=== PATIENT | male | born 1940 | race Caucasian/White ===

== ENCOUNTER 2019-11-18 13:58 | Emergency (ER) | payer MEDICARE, OTHER ==
--- NOTE | 2019-11-18 15:03 | EDM.PDOC ---
ED HPI GENERAL MEDICAL PROBLEM - General Chief Complaint: General Stated Complaint: cant pee Time Seen by Provider: 11/18/19 14:15 Source of Information: Reports: Patient History Limitations: Reports: No Limitations - History of Present Illness INITIAL COMMENTS - FREE TEXT/NARRATIVE: Patient states not been able to urinate since about 3 this morning Patient states he has had multiple prostate issues including cancer and has had a prostatectomy in the past he currently sees Dr. Gaming in [place] [facility] as needed he has no other complaints at this time Improves with: Reports: None Worsens with: Reports: None Associated Symptoms: Reports: No Other Symptoms - Related Data Allergies Allergy/AdvReac Type Severity Reaction Status Date / Time Penicillins Allergy Other Verified 07/16/16 14:51 Home Meds: Home Meds Albuterol Sulfate [Proair Hfa] 2 puff PO Q4H PRN 07/11/16 [History] Aspirin [Halfprin] 81 mg PO DAILY 07/11/16 [History] Atenolol [Tenormin] 50 mg PO DAILY 07/11/16 [History] Citalopram Hydrobromide [Celexa] 40 mg PO DAILY 07/11/16 [History] Docusate Sodium [Colace] 200 mg PO BID 07/11/16 [History] Lisinopril/Hydrochlorothiazide [Zestoretic 20-12.5 mg Tablet] 1.5 tab PO DAILY 07/11/16 [History] Multivitamin [Multivitamins] 1 tab PO DAILY 07/11/16 [History] Naproxen Sodium [Aleve] 1 - 2 tab PO BID PRN 07/11/16 [History] Polyvinyl Alcohol [Artificial Tears] 1 drop EYEBOTH BID PRN 07/11/16 [History] Simvastatin [Zocor] 1 tab PO DAILY 07/11/16 [History] Tamsulosin [Flomax] 1 cap PO DAILY 07/11/16 [History] Acetaminophen/oxyCODONE [Percocet 325-5 MG] 1 each PO Q6H PRN 10/15/18 [History] Albuterol/Ipratropium [DuoNeb 3.0-0.5 MG/3 ML] 3 ml INH Q6H 10/15/18 [History] Budesonide [Pulmicort] 0.5 mg IH BID 10/15/18 [History] Dutasteride [Avodart] 0.5 mg PO DAILY 10/15/18 [History] Polyethylene Glycol 3350 [Miralax] 17 gm PO DAILY 10/15/18 [History] Acetaminophen/oxyCODONE [Percocet 325-5 MG] 1 tab PO Q6H PRN tablet 10/18/18 [ Rx] Albuterol/Ipratropium [DuoNeb 3.0-0.5 MG/3 ML] 3 ml NEB Q4HRRT neb 10/18/18 [Rx ] Cefuroxime [Ceftin] 250 mg PO BID #10 tablet 10/18/18 [Rx] Nicotine [Habitrol] 14 mg TRDERM DAILY@0800 #30 patch 10/18/18 [Rx] Potassium Chloride [Klor-Con 10] 20 meq PO WITHBREAKFAST #30 tab.er 10/18/18 [Rx ] predniSONE 40 mg PO WITHBREAKFAST #5 tablet 10/18/18 [Rx] Past Medical History HEENT History: Reports: Allergic Rhinitis, Cataract Cardiovascular History: Reports: CAD, High Cholesterol, Hypertension, PVD Respiratory History: Reports: COPD Gastrointestinal History: Reports: Other (See Below) Other Gastrointestinal History: hernia umbilical Genitourinary History: Reports: BPH, Other (See Below) Other Genitourinary History: turp- 10/06/18- sahni placed Musculoskeletal History: Reports: Osteoarthritis, Other (See Below) Other Musculoskeletal History: fatigue Neurological History: Reports: None Psychiatric History: Reports: Addiction, Anxiety, Depression Other Endocrine/Metabolic History: hyperglycemia Hematologic History: Reports: None Immunologic History: Reports: None Oncologic (Cancer) History: Reports: None Dermatologic History: Reports: None - Past Surgical History Head Surgeries/Procedures: Reports: None Cardiovascular Surgical History: Reports: Carotid Endarterectomy Male Surgical History: Reports: TURP-Transurethral Resection of Prostate Neurological Surgical History: Reports: None Oncologic Surgical History: Reports: None ED ROS GENERAL - Review of Systems Review Of Systems: See Below Constitutional: Denies: Fever, Chills, Malaise, Weakness, Fatigue, Diaphoresis, Decreased Appetite HEENT: Reports: No Symptoms Respiratory: Reports: No Symptoms Cardiovascular: Reports: No Symptoms Endocrine: Reports: No Symptoms GI/Abdominal: Reports: No Symptoms : Reports: Urinary Retention. Denies: Discharge, Dysuria, Flank Pain, Frequency, Hematuria, Incontinence, Pain, Urgency Musculoskeletal: Reports: No Symptoms Skin: Reports: No Symptoms Neurological: Reports: No Symptoms Psychiatric: Reports: No Symptoms Hematologic/Lymphatic: Reports: No Symptoms Immunologic: Reports: No Symptoms ED EXAM, RENAL/ - Physical Exam Exam: See Below General Appearance: Alert, WD/WN, No Apparent Distress Eye Exam: Bilateral Eye: EOMI, PERRL Throat/Mouth: Normal Inspection, Normal Lips, Normal Teeth, Normal Gums, Normal Oropharynx, Normal Voice, No Airway Compromise Neck: Normal Inspection, Full Range of Motion Respiratory/Chest: No Respiratory Distress, Lungs Clear, Normal Breath Sounds, No Accessory Muscle Use, Chest Non-Tender Cardiovascular: Normal Peripheral Pulses, Regular Rate, Rhythm, No Edema, No Gallop, No JVD, No Murmur, No Rub GI/Abdominal: Normal Bowel Sounds, Soft, Non-Tender, No Organomegaly, No Distention, Other (Mild tenderness to palpation over the lower pelvic area mild distention noted in the area no pain) Back Exam: Normal Inspection, Full Range of Motion. No: CVA Tenderness (L), CVA Tenderness (R) Extremities: Normal Inspection, Normal Range of Motion, Non-Tender, No Pedal Edema, Normal Capillary Refill Neurological: Alert, Oriented, CN II-XII Intact, Normal Cognition, Normal Gait, No Motor/Sensory Deficits Psychiatric: Normal Affect, Normal Mood Skin Exam: Warm, Dry, Intact, Normal Color, No Rash Course - Vital Signs Text/Narrative:: Several attempts was made by the nursing staff to pass a Sanhi cath from a 14- gauge down to a 10 with no LOC believe the patient has a urethral stricture or blockage of some sort Called [facility] Dr. ALICIA as well and except through the ER and will consult Dr. Gaming if needed Departure - Departure Time of Disposition: 15:05 Disposition: DC/Tfer to Other 70 Condition: Good Clinical Impression: Acute urinary retention - Discharge Information *PRESCRIPTION DRUG MONITORING PROGRAM REVIEWED*: No *COPY OF PRESCRIPTION DRUG MONITORING REPORT IN PATIENT STAN: No Forms: ED Department Discharge - Problem List & Annotations (1) Acute urinary retention SNOMED Code(s): 644205190 Code(s): R33.8 - OTHER RETENTION OF URINE Status: Acute Current Visit: Yes
[2019-11-18 15:11] VITALS: BP 151/91; PULSE 79
== END 2019-11-18 15:32 | disposition other institution (70) ==
LOC: VM.ED 13:58
DX: R33.9 Retention of urine, unspecified (principal); J44.9 Chronic obstructive pulmonary disease, unspecified; I25.10 Atherosclerotic heart disease of native coronary artery without angina pectoris; I10 Essential (primary) hypertension; E78.00 Pure hypercholesterolemia, unspecified; Z79.51 Long term (current) use of inhaled steroids; Z79.82 Long term (current) use of aspirin; Z79.899 Other long term (current) drug therapy; Z88.0 Allergy status to penicillin
CPT/HCPCS: 51702; 51798; 99284-25; 99284-GF

== ENCOUNTER 2020-06-16 13:13 | Emergency (ER) | payer MEDICARE, OTHER ==
--- NOTE | 2020-06-16 13:30 | EDM.PDOC ---
ED HPI GENERAL MEDICAL PROBLEM - General Chief Complaint: General Stated Complaint: ER Time Seen by Provider: 06/16/20 13:13 Source of Information: Reports: Patient History Limitations: Reports: No Limitations - History of Present Illness INITIAL COMMENTS - FREE TEXT/NARRATIVE: Patient comes into the emergency department by ambulance for elevated labs. Patient is a resident at the local [facility] and had his labs obtained for he had a decrease in urine output the last couple days. Labs were drawn on the patient yesterday while in the intermediate as well as given 1 L of normal saline. His labs were re-drawn this morning which did show an increase of his creatinine again. His creatinine 12 days ago was 2.4, yesterday 3.4 and today 7.0. Patient states he does not have a history of kidney issues however his chart states CKD stage 4. Patient states he feels nauseated and has increased abdominal discomfort. Patient was originally admitted to the intermediate due to acute kidney injury due to AKIN, NSAID, and dehydration. He denies any urinary burning hesitancy or frequency prior to the elevated creatinine within the last 2 weeks. He states he is been relatively healthy and has no other complaints or concerns prior to this. He states that in the last 24 to 48 hours is when the nausea and abdominal pain has increased as well as a decrease in urine output. Patient denies of any fever, chest pain, SOB, dizziness, or peripheral edema. Denies any active COVID-19 symptoms or recent exposure. Patient has had Covid- 19 testing completed on 06/04/20. Onset: Gradual Quality: Reports: Other Severity: Mild Improves with: Reports: None Worsens with: Reports: None Context: Reports: Activity Associated Symptoms: Reports: No Other Symptoms - Related Data Allergies Allergy/AdvReac Type Severity Reaction Status Date / Time Penicillins Allergy Other Verified 11/18/19 15:00 tizanidine [From Zanaflex] Allergy Cannot Verified 06/16/20 14:28 Remember Home Meds: Home Meds Albuterol Sulfate [Proair Hfa] 2 puff PO Q4H PRN 07/11/16 [History] Aspirin [Halfprin] 81 mg PO DAILY 07/11/16 [History] Citalopram Hydrobromide [Celexa] 40 mg PO DAILY 07/11/16 [History] Multivitamin [Multivitamins] 1 tab PO DAILY 07/11/16 [History] Polyvinyl Alcohol [Artificial Tears] 1 drop EYEBOTH QID PRN 07/11/16 [History] Simvastatin [Zocor] 1 tab PO DAILY 07/11/16 [History] Tamsulosin [Flomax] 1 cap PO DAILY 07/11/16 [History] atenoloL [Tenormin] 50 mg PO DAILY 07/11/16 [History] Albuterol/Ipratropium [DuoNeb 3.0-0.5 MG/3 ML] 3 ml INH Q6H 10/15/18 [History] Budesonide [Pulmicort] 0.5 mg IH BID 10/15/18 [History] Dutasteride [Avodart] 0.5 mg PO DAILY 10/15/18 [History] polyethylene glycoL 3350 [Miralax] 17 gm PO DAILY PRN 10/15/18 [History] Acetaminophen [Tylenol] 325 mg PO Q4H PRN 06/16/20 [History] Apixaban [Eliquis] 2.5 mg PO BID 06/16/20 [History] NIFEdipine [Nifedipine ER] 30 mg PO DAILY 06/16/20 [History] Omeprazole 20 mg PO DAILY 06/16/20 [History] Past Medical History HEENT History: Reports: Allergic Rhinitis, Cataract Cardiovascular History: Reports: CAD, High Cholesterol, Hypertension, PVD Respiratory History: Reports: COPD Gastrointestinal History: Reports: Other (See Below) Other Gastrointestinal History: hernia umbilical Genitourinary History: Reports: BPH, Other (See Below) Other Genitourinary History: turp- 10/06/18- sahni placed Musculoskeletal History: Reports: Osteoarthritis, Other (See Below) Other Musculoskeletal History: fatigue Neurological History: Reports: None Psychiatric History: Reports: Addiction, Anxiety, Depression Other Endocrine/Metabolic History: hyperglycemia Hematologic History: Reports: None Immunologic History: Reports: None Oncologic (Cancer) History: Reports: None Dermatologic History: Reports: None - Past Surgical History Head Surgeries/Procedures: Reports: None Cardiovascular Surgical History: Reports: Carotid Endarterectomy Male Surgical History: Reports: TURP-Transurethral Resection of Prostate Neurological Surgical History: Reports: None Oncologic Surgical History: Reports: None ED ROS GENERAL - Review of Systems Review Of Systems: Comprehensive ROS is negative, except as noted in HPI. Constitutional: Reports: No Symptoms HEENT: Reports: No Symptoms Respiratory: Reports: No Symptoms Cardiovascular: Reports: No Symptoms Endocrine: Reports: No Symptoms GI/Abdominal: Reports: No Symptoms Musculoskeletal: Reports: No Symptoms ED EXAM, GENERAL - Physical Exam Exam: See Below Exam Limited By: No Limitations General Appearance: Alert, WD/WN, No Apparent Distress Head: Atraumatic, Normocephalic Neck: Normal Inspection, Supple, Non-Tender, Full Range of Motion Respiratory/Chest: No Respiratory Distress, Lungs Clear, Normal Breath Sounds, No Accessory Muscle Use, Chest Non-Tender Cardiovascular: Normal Peripheral Pulses, Regular Rate, Rhythm, No Edema Back Exam: Normal Inspection, Full Range of Motion Extremities: Normal Inspection, Normal Range of Motion, Non-Tender, No Pedal Edema, Normal Capillary Refill Neurological: Alert, Oriented, CN II-XII Intact, Normal Gait Psychiatric: Normal Affect, Normal Mood Skin Exam: Warm, Dry, Intact, Normal Color Course - Vital Signs Last Recorded V/S: Last Vital Signs Temp 35.9 C L 06/16/20 13:26 Pulse 67 06/16/20 13:26 Resp 21 H 06/16/20 13:26 BP 131/59 L 06/16/20 13:26 Pulse Ox 96 06/16/20 13:26 - Orders/Labs/Meds Orders: Active Orders 24 hr Category Date Time Status CULTURE URINE [RM] Stat Lab 06/16/20 11:24 Received Labs: Laboratory Tests 06/16/20 06/16/20 06/16/20 Range/Units 11:24 11:50 13:35 WBC 10.2 H (4.0-10.0) x10^3/uL RBC 3.57 L (4.5-6.0) x10^6/uL Hgb 10.5 L D (14.0-18.0) g/dL Hct 31.1 L (40.0-52.0) % MCV 87.1 D (78.0-93.0) fL MCH 29.4 (26.0-32.0) pg MCHC 33.8 (32.0-36.0) g/dL RDW Coeff of Anthony 12.9 (10.0-15.0) % Plt Count 237 (130-400) x10^3/uL Neut % (Auto) 84.3 H (50.0-80.0) % Lymph % (Auto) 5.1 L (25.0-50.0) % Barren % (Auto) 10.3 (2.0-11.0) % Eos % (Auto) 0.1 (0.0-4.0) % Baso % (Auto) 0.2 (0.2-1.2) % PT (9.5-12.3) SEC INR (2.0-3.5) Sodium TNP Potassium TNP Chloride TNP Carbon Dioxide TNP Anion Gap TNP BUN TNP Creatinine TNP Est Cr Clr Drug Dosing TNP Estimated GFR (MDRD) TNP Glucose TNP Calcium TNP Corrected Calcium TNP Total Bilirubin 0.5 (0.2-1.0) mg/dL AST 46 H (15-37) U/L ALT 57 (16-63) U/L Alkaline Phosphatase 98 (46-116) U/L Troponin I < 0.017 (<=0.056) ng/mL Total Protein 7.1 (6.4-8.2) g/dL Albumin 2.3 L (3.4-5.0) g/dL Globulin 4.8 Albumin/Globulin Ratio 0.48 Urine Color Light yellow (YELLOW) Urine Appearance Slightly cloudy H (CLEAR) Urine pH 6.0 (5.0-8.0) Ur Specific [place] 1.015 Urine Protein 30 H (NEGATIVE) mg/dL Urine Glucose (UA) Negative (NEGATIVE) mg/dL Urine Ketones Negative (NEGATIVE) mg/dL Urine Occult Blood Moderate H (NEGATIVE) Urine Nitrite Negative (NEGATIVE) Urine Bilirubin Negative (NEGATIVE) Urine Urobilinogen 0.2 (0.2) EU/dL Ur Leukocyte Esterase Large H (NEGATIVE) Urine RBC 5-10 H (NOT SEEN) /HPF Urine WBC 30-40 H (NOT SEEN) /HPF Ur Squamous Epith Cells Not seen (NEGATIVE) /HPF Urine Bacteria Few H (NEGATIVE) /HPF Urine Mucus Not seen (NEGATIVE) /LPF 06/16/20 Range/Units 13:35 WBC (4.0-10.0) x10^3/uL RBC (4.5-6.0) x10^6/uL Hgb (14.0-18.0) g/dL Hct (40.0-52.0) % MCV (78.0-93.0) fL MCH (26.0-32.0) pg MCHC (32.0-36.0) g/dL RDW Coeff of Anthony (10.0-15.0) % Plt Count (130-400) x10^3/uL Neut % (Auto) (50.0-80.0) % Lymph % (Auto) (25.0-50.0) % Barren % (Auto) (2.0-11.0) % Eos % (Auto) (0.0-4.0) % Baso % (Auto) (0.2-1.2) % PT 15.5 H (9.5-12.3) SEC INR 1.5 L (2.0-3.5) Sodium Potassium Chloride Carbon Dioxide Anion Gap BUN Creatinine Est Cr Clr Drug Dosing Estimated GFR (MDRD) Glucose Calcium Corrected Calcium Total Bilirubin (0.2-1.0) mg/dL AST (15-37) U/L ALT (16-63) U/L Alkaline Phosphatase (46-116) U/L Troponin I (<=0.056) ng/mL Total Protein (6.4-8.2) g/dL Albumin (3.4-5.0) g/dL Globulin Albumin/Globulin Ratio Urine Color (YELLOW) Urine Appearance (CLEAR) Urine pH (5.0-8.0) Ur Specific [place] Urine Protein (NEGATIVE) mg/dL Urine Glucose (UA) (NEGATIVE) mg/dL Urine Ketones (NEGATIVE) mg/dL Urine Occult Blood (NEGATIVE) Urine Nitrite (NEGATIVE) Urine Bilirubin (NEGATIVE) Urine Urobilinogen (0.2) EU/dL Ur Leukocyte Esterase (NEGATIVE) Urine RBC (NOT SEEN) /HPF Urine WBC (NOT SEEN) /HPF Ur Squamous Epith Cells (NEGATIVE) /HPF Urine Bacteria (NEGATIVE) /HPF Urine Mucus (NEGATIVE) /LPF Meds: Medications Discontinued Medications Generic Name Dose Route Start Last Admin Trade Name Freq PRN Reason Stop Dose Admin Ceftriaxone Sodium 1 gm 06/16/20 14:27 06/16/20 14:38 Rocephin IVPUSH 06/16/20 14:28 1 gm ONETIME ONE Administration Ondansetron HCl 4 mg 06/16/20 13:25 06/16/20 13:34 Zofran IVPUSH 06/16/20 13:26 4 mg ONETIME ONE Administration Departure - Departure Time of Disposition: 15:15 Disposition: DC/Tfer to Psych Hosp/Unit 65 Condition: Fair Clinical Impression: UTI, Urinary tract infectious disease, Acute urinary retention Acute kidney failure Qualifiers: Acute renal failure type: unspecified Qualified Code(s): N17.9 - Acute kidney failure, unspecified - Discharge Information *PRESCRIPTION DRUG MONITORING PROGRAM REVIEWED*: Not Applicable *COPY OF PRESCRIPTION DRUG MONITORING REPORT IN PATIENT STAN: Not Applicable Referrals: Alice Torrez MD [Primary Care Provider] - Forms: ED Department Discharge, Interfacility Transfer [facility] Sepsis Event Note (ED) - Focused Exam Vital Signs: Vital Signs Temp Pulse Resp BP Pulse Ox 06/16/20 13:26 35.9 C L 67 21 H 131/59 L 96 - My Orders Last 24 Hours: My Active Orders 06/16/20 11:24 CULTURE URINE [RM] Stat - Assessment/Plan Last 24 Hours: My Active Orders 06/16/20 11:24 CULTURE URINE [RM] Stat Assessment:: 1. Acute on chronic kidney failure 2. nausea Plan: 1. Labs completed in the ER. Results reviewed with the patient 2. CT scan completed in the ER. Results reviewed with the patient 3. IV initiated in the emergency department 4. IV fluids provided. 5. Pain medication given for severe pain and discomfort-pt denied wanting any medications at the present time. 6. Zofran given in the ER to help with nausea 7. Rocephin 1gm IV given in ER. 8. Consultation completed with-Dr. Peterson who has accepted care and acute transfer of patient for further evaluation and management. Pt will be transferred via ambulance. 9. Patient and nursing staff was updated regarding the plan of care 10. Patient and family are agreeable to the above plan of care 11. All questions and concerns were addressed with the patient and family prior to discharge
[2020-06-16] MEDS: Ondansetron 4 MG/2 ML SDV IVPUSH ONE (13:34)
[2020-06-16] MEDS: cefTRIAXone 1 GM Vial IVPUSH ONE (14:38)
--- NOTE | 2020-06-16 14:39 | CT ---
[id number] CT/CT Abdomen Pelvis WO IV EXAM: ABDOMEN AND PELVIS CT WITHOUT CONTRAST INDICATION: Abdomen pain and kidney failure. COMPARISON: August 18, 2018. DISCUSSION: Interval prostate resection. A Simmons catheter is present with the tip in the urinary bladder, but the balloon appearing to be positioned within the prostatic urethra. There is a thick-walled appearance of the bladder which could be from chronic outlet obstruction, cystitis or other underlying pathology. Correlation with urinalysis is suggested. There is mild perinephric stranding, but no current hydronephrosis or urinary calculi. Mild splenomegaly. A few scattered subcentimeter hepatic hypodensities are too small to further characterize, but are stable relative to prior studies. Atherosclerotic plaque scattered throughout the aorta and its major branches. Diverticulosis of the colon without evidence of diverticulitis. Small fat-containing umbilical hernia. Just above this there is a small hernia containing an unobstructed loop of small bowel. A moderate to advanced L3 burst-type compression fracture is similar in morphology to a January 09, 2020 MRI with persistent 8 mm displacement of the posterior aspect of vertebral body into the central canal with resulting central stenosis. Scattered degenerative changes. Grade 1 degenerative L4-L5 spondylolisthesis. Unenhanced images of the pancreas and adrenal glands are unremarkable. No adenopathy or free air. No significant free fluid. IMPRESSION: 1. Malpositioned Simmons catheter with the tip entering the urinary bladder, but the balloon positioned within the penile urethra. 2. There is mild bilateral perinephric stranding and a thick-walled appearance of the urinary bladder, but no hydronephrosis or significant bladder distention. Correlation with urinalysis is suggested to further exclude evidence of urinary infection. 3. Moderate to severe burst-type compression fracture of L3 with a retropulsed fragment narrowing the central canal. These findings have not definitely changed relative to January 09, 2020 MRI. Fabio Cui MD 06/16/20 [id number] Thank you for allowing us to participate in the care of your patient.
[2020-06-16 15:38] VITALS: BP 109/40; PULSE 72
== END 2020-06-16 16:00 | disposition short-term general hospital (02) ==
LOC: VM.ED 13:13
DX: N39.0 Urinary tract infection, site not specified (principal); I12.9 Hypertensive chronic kidney disease with stage 1 through stage 4 chronic kidney disease, or unspecified chronic kidney disease; N18.9 Chronic kidney disease, unspecified; N17.9 Acute kidney failure, unspecified; R11.0 Nausea; I10 Essential (primary) hypertension; E78.00 Pure hypercholesterolemia, unspecified; I25.10 Atherosclerotic heart disease of native coronary artery without angina pectoris; J44.9 Chronic obstructive pulmonary disease, unspecified; N40.0 Benign prostatic hyperplasia without lower urinary tract symptoms; M19.90 Unspecified osteoarthritis, unspecified site; F41.9 Anxiety disorder, unspecified; F32.9 Major depressive disorder, single episode, unspecified; Z88.0 Allergy status to penicillin; Z88.8 Allergy status to other drugs, medicaments and biological substances; Z79.82 Long term (current) use of aspirin; Z79.899 Other long term (current) drug therapy; Z79.01 Long term (current) use of anticoagulants
CPT/HCPCS: 36415; 74176; 80053; 81001; 84484; 85025; 85610; 87086; 87088; 87186; 96374; 96375; 99285; J0696; J2405; 81003; 99284

== ENCOUNTER 2020-10-03 19:44 | Inpatient (IN) | payer MEDICARE, OTHER ==
[2020-10-03] MEDS ORDERED: Lactated Ringers 1,000 ML IV ONE (20:06)
[2020-10-03] MEDS ORDERED: Azithromycin 500 MG in Sodium Chloride 0.9% 250 ML IV ONE (20:06)
[2020-10-03] MEDS ORDERED: cefTRIAXone 1 GM Vial IVPUSH ONE (20:06)
--- NOTE | 2020-10-03 20:10 | EDM.PDOC ---
ED HPI GENERAL MEDICAL PROBLEM - General Stated Complaint: hypoxia tachypnea Time Seen by Provider: 10/03/20 19:57 Source of Information: Reports: Patient History Limitations: Reports: No Limitations - History of Present Illness INITIAL COMMENTS - FREE TEXT/NARRATIVE: Patient comes to the emergency department today by ambulance from the local alf. The ambulance was summoned because the nursing staff noticed that he just was not himself. 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 He was noted to be tachypneic. Upon EMS arrival his oxygen saturation was in 87% on 2 L which she is chronically on 2 L of oxygen. He required 5 L of oxygen to get his sats up to over 92%. He was given a nebulizer treatment with improvement of his tachypnea. Upon arrival the patient really does not have any complaints. He does not complain of any shortness of breath or chest pain. No fever no chills. No nausea no vomiting. No weakness dizziness lightheadedness. He does complain of some chronic back pain that he has always had. He denies any hematuria dysuria or urinary frequency. No black or tarry stools. He relates that he has been eating and drinking appropriately. He was Covid positive a couple of weeks ago and is out of his quarantine time. - Related Data Allergies Allergy/AdvReac Type Severity Reaction Status Date / Time Penicillins Allergy Other Verified 10/03/20 20:51 tizanidine [From Zanaflex] Allergy Cannot Verified 10/03/20 20:51 Remember Home Meds: Home Meds Albuterol Sulfate [Proair Hfa] 2 puff PO Q4H PRN 07/11/16 [History] Aspirin [Halfprin] 81 mg PO DAILY 07/11/16 [History] Citalopram Hydrobromide [Celexa] 40 mg PO DAILY 07/11/16 [History] Multivitamin [Multivitamins] 1 tab PO DAILY 07/11/16 [History] Polyvinyl Alcohol [Artificial Tears] 1 drop EYEBOTH QID PRN 07/11/16 [History] Simvastatin [Zocor] 10 mg PO DAILY 07/11/16 [History] atenoloL [Tenormin] 50 mg PO DAILY 07/11/16 [History] Albuterol/Ipratropium [DuoNeb 3.0-0.5 MG/3 ML] 3 ml INH Q6H 10/15/18 [History] Budesonide [Pulmicort] 0.5 mg IH BID 10/15/18 [History] Dutasteride [Avodart] 0.5 mg PO DAILY 10/15/18 [History] polyethylene glycoL 3350 [Miralax] 17 gm PO DAILY PRN 10/15/18 [History] Acetaminophen [Tylenol] 325 mg PO Q4H PRN 06/16/20 [History] Apixaban [Eliquis] 2.5 mg PO BID 06/16/20 [History] NIFEdipine [Nifedipine ER] 30 mg PO DAILY 06/16/20 [History] Calcium Carbonate [Tums] 2 tab PO QID PRN 10/03/20 [History] Non-Formulary Medication [NF Drug] 1,000 intnl unit PO DAILY 10/03/20 [History] Sodium Bicarbonate 650 mg PO BID PRN 10/03/20 [History] guaiFENesin [Mucinex] 600 mg PO Q12HR PRN 10/03/20 [History] Past Medical History HEENT History: Reports: Allergic Rhinitis, Cataract Cardiovascular History: Reports: CAD, High Cholesterol, Hypertension, PVD Respiratory History: Reports: COPD Gastrointestinal History: Reports: Other (See Below) Other Gastrointestinal History: hernia umbilical Genitourinary History: Reports: BPH, Other (See Below) Other Genitourinary History: turp- 10/06/18- sahni placed Musculoskeletal History: Reports: Osteoarthritis, Other (See Below) Other Musculoskeletal History: fatigue Neurological History: Reports: None Psychiatric History: Reports: Addiction, Anxiety, Depression Other Endocrine/Metabolic History: hyperglycemia Hematologic History: Reports: None Immunologic History: Reports: None Oncologic (Cancer) History: Reports: None Dermatologic History: Reports: None - Past Surgical History Head Surgeries/Procedures: Reports: None Cardiovascular Surgical History: Reports: Carotid Endarterectomy Male Surgical History: Reports: TURP-Transurethral Resection of Prostate Neurological Surgical History: Reports: None Oncologic Surgical History: Reports: None ED ROS GENERAL - Review of Systems Review Of Systems: Comprehensive ROS is negative, except as noted in HPI. ED EXAM, GENERAL - Physical Exam Exam: See Below Free Text/Narrative:: He is mildly tachypneic especially with any physical exertion. There is no labored breathing. He is only able to speak in 3-5 word sentences. Exam Limited By: No Limitations General Appearance: Alert, WD/WN, No Apparent Distress Eye Exam: Bilateral Eye: EOMI Ears: Normal External Exam Nose: Normal Inspection Throat/Mouth: No Airway Compromise. No: Normal Inspection (His oral mucosa is quite dry.), Normal Lips (His lips are dried and cracked.) Head: Atraumatic, Normocephalic Neck: Normal Inspection, Supple, Non-Tender Respiratory/Chest: No Respiratory Distress, Chest Non-Tender, Decreased Breath Sounds (Bilaterally.), Crackles (Left lower lobe), Wheezing (Faint expiratory wheezing bilaterally.) Cardiovascular: Normal Peripheral Pulses, Regular Rate, Rhythm, No Edema, No Murmur GI/Abdominal: Normal Bowel Sounds, Soft, Non-Tender (Male) Exam: Deferred Rectal (Males) Exam: Deferred Back Exam: Normal Inspection, Full Range of Motion Extremities: Normal Inspection, Normal Range of Motion, Non-Tender, Normal Capillary Refill Neurological: Alert, Oriented, Normal Cognition, No Motor/Sensory Deficits Skin Exam: Warm, Dry, Intact, Normal Color #1 Interpretation EKG Date: 10/03/20 Time: 20:00 Rhythm: NSR Rate (Beats/Min): 97 [place]: Normal P-Wave: Present QRS: Normal ST-T: Normal QT: Normal Comparison: No Change Course - Vital Signs Last Recorded V/S: Last Vital Signs Temp 98.6 F 10/03/20 22:08 Pulse 87 10/03/20 22:08 Resp 22 H 10/03/20 22:08 BP 120/54 L 10/03/20 22:08 Pulse Ox 94 L 10/03/20 22:08 - Orders/Labs/Meds Orders: Active Orders 24 hr Category Date Time Status EKG Documentation Completion [RC] STAT Care 10/03/20 19:55 Active CULTURE BLOOD [BC] Stat Lab 10/03/20 20:13 Received CULTURE BLOOD [BC] Stat Lab 10/03/20 20:18 Received CULTURE URINE [RM] Stat Lab 10/03/20 20:45 Received PROCALCITONIN [REF] Stat Lab 10/03/20 20:13 Received Blood Culture x2 Reflex Set [OM.PC] Stat Oth 10/03/20 20:04 Ordered Medication Orders Acetaminophen (Tylenol) 650 mg PO Q4H PRN PRN Reason: Pain Albuterol/Ipratropium (Duoneb 3.0-0.5 Mg/3 Ml) 3 ml INH Q6HRRT [facility] Last Admin: 10/03/20 22:54 Dose: 3 ml Documented by: ERMA Apixaban (Eliquis) 2.5 mg PO BID [facility] Artificial Tears (Genteal Mild To Moderate Ophth Soln) 0 ml EYEBOTH QID PRN PRN Reason: Dryness Aspirin (Halfprin) 81 mg PO DAILY JAQUELINE Atenolol (Tenormin) 50 mg PO DAILY [facility] Azithromycin (Zithromax) 500 mg PO Q24H [facility] Stop: 10/09/20 22:01 Budesonide (Pulmicort) 0.5 mg INH BIDRT [facility] Ceftriaxone Sodium (Rocephin) 1 gm IVPUSH Q24H [facility] Citalopram Hydrobromide (Celexa) 40 mg PO DAILY [facility] Finasteride (Proscar) 5 mg PO DAILY [facility] Guaifenesin (Mucinex) 600 mg PO Q12HR PRN PRN Reason: for excess mucus secretions Last Admin: 10/03/20 22:54 Dose: 600 mg Documented by: ERMA Lactated Ringer's (Ringers, Lactated) 1,000 mls @ 50 mls/hr IV ASDIRECTED [facility] Last Admin: 10/03/20 22:47 Dose: 50 mls/hr Documented by: ERMA Nifedipine (Procardia Xl) 30 mg PO DAILY [facility] Non-Formulary Medication (Calcium Carbonate [Tums]) 2 tab PO QID PRN PRN Reason: GI Distress Polyethylene Glycol (Miralax) 17 gm PO DAILY PRN PRN Reason: Constipation Prednisone (Prednisone) 40 mg PO WITHBREAKFAST [facility] Simvastatin (Zocor) 10 mg PO DAILY [facility] Sodium Bicarbonate (Sodium Bicarbonate) 650 mg PO BID [facility] Labs: Laboratory Tests 10/03/20 10/03/20 10/03/20 Range/Units 20:13 20:13 20:13 WBC 8.3 (4.0-10.0) x10^3/uL RBC 2.95 L (4.5-6.0) x10^6/uL Hgb 8.7 L D (14.0-18.0) g/dL Hct 27.8 L (40.0-52.0) % MCV 94.2 H D (78.0-93.0) fL MCH 29.5 (26.0-32.0) pg MCHC 31.3 L (32.0-36.0) g/dL RDW Coeff of Anthony 12.8 (10.0-15.0) % Plt Count 328 D (130-400) x10^3/uL Neut % (Auto) 77.8 (50.0-80.0) % Lymph % (Auto) 10.9 L (25.0-50.0) % Christian % (Auto) 9.7 (2.0-11.0) % Eos % (Auto) 1.4 (0.0-4.0) % Baso % (Auto) 0.2 (0.2-1.2) % POC VBG pH (7.32-7.43) pH POC VBG pCO2 (41-51) mmHg POC VBG pO2 mmHg POC VBG HCO3 (22-29) mmol/L POC Venous O2 Sat % VBG Base Excess (-(2)-3) mmol/L POC FiO2 Sodium 136 (136-145) mmol/L Potassium 4.9 (3.5-5.1) mmol/L Chloride 99 (98-107) mmol/L Carbon Dioxide 28 (21-32) mmol/L POC Venous Total CO2 Anion Gap 13.9 (10-20) mmol/L BUN 25 H D (7-18) mg/dL Creatinine 2.5 H D (0.70-1.30) mg/dL Est Cr Clr Drug Dosing TNP Estimated GFR (MDRD) 25 Glucose 116 H (74-106) mg/dL Lactic Acid 1.4 (0.4-2.0) mmol/L Calcium 8.9 (8.5-10.1) mg/dL Corrected Calcium 9.94 (8.5-10.1) mg/dL Total Bilirubin 0.4 (0.2-1.0) mg/dL AST 20 (15-37) U/L ALT 31 (16-63) U/L Alkaline Phosphatase 109 (46-116) U/L Troponin I < 0.017 (<=0.056) ng/mL C-Reactive Protein 9.4 H (<=0.9) mg/dL NT-Pro-B Natriuret Pep 1256 H (<=450) pg/mL Total Protein 7.6 (6.4-8.2) g/dL Albumin 2.7 L (3.4-5.0) g/dL Globulin 4.9 Albumin/Globulin Ratio 0.55 Urine Color (YELLOW) Urine Appearance (CLEAR) Urine pH (5.0-8.0) Ur Specific [place] Urine Protein (NEGATIVE) mg/dL Urine Glucose (UA) (NEGATIVE) mg/dL Urine Ketones (NEGATIVE) mg/dL Urine Occult Blood (NEGATIVE) Urine Nitrite (NEGATIVE) Urine Bilirubin (NEGATIVE) Urine Urobilinogen (0.2) EU/dL Ur Leukocyte Esterase (NEGATIVE) Urine RBC (NOT SEEN) /HPF Urine WBC (NOT SEEN) /HPF Ur Squamous Epith Cells (NEGATIVE) /HPF Amorphous Sediment Urine Bacteria (NEGATIVE) /HPF Urine Mucus (NEGATIVE) /LPF 10/03/20 10/03/20 Range/Units 20:13 20:45 WBC (4.0-10.0) x10^3/uL RBC (4.5-6.0) x10^6/uL Hgb (14.0-18.0) g/dL Hct (40.0-52.0) % MCV (78.0-93.0) fL MCH (26.0-32.0) pg MCHC (32.0-36.0) g/dL RDW Coeff of Anthony (10.0-15.0) % Plt Count (130-400) x10^3/uL Neut % (Auto) (50.0-80.0) % Lymph % (Auto) (25.0-50.0) % Christian % (Auto) (2.0-11.0) % Eos % (Auto) (0.0-4.0) % Baso % (Auto) (0.2-1.2) % POC VBG pH 7.32 (7.32-7.43) pH POC VBG pCO2 51 (41-51) mmHg POC VBG pO2 51 mmHg POC VBG HCO3 26 (22-29) mmol/L POC Venous O2 Sat 83 % VBG Base Excess 0 (-(2)-3) mmol/L POC FiO2 0.28 Sodium (136-145) mmol/L Potassium (3.5-5.1) mmol/L Chloride (98-107) mmol/L Carbon Dioxide (21-32) mmol/L POC Venous Total CO2 TNP Anion Gap (10-20) mmol/L BUN (7-18) mg/dL Creatinine (0.70-1.30) mg/dL Est Cr Clr Drug Dosing Estimated GFR (MDRD) Glucose (74-106) mg/dL Lactic Acid (0.4-2.0) mmol/L Calcium (8.5-10.1) mg/dL Corrected Calcium (8.5-10.1) mg/dL Total Bilirubin (0.2-1.0) mg/dL AST (15-37) U/L ALT (16-63) U/L Alkaline Phosphatase (46-116) U/L Troponin I (<=0.056) ng/mL C-Reactive Protein (<=0.9) mg/dL NT-Pro-B Natriuret Pep (<=450) pg/mL Total Protein (6.4-8.2) g/dL Albumin (3.4-5.0) g/dL Globulin Albumin/Globulin Ratio Urine Color Yellow (YELLOW) Urine Appearance Cloudy H (CLEAR) Urine pH 7.0 (5.0-8.0) Ur Specific [place] 1.015 Urine Protein 30 H (NEGATIVE) mg/dL Urine Glucose (UA) Negative (NEGATIVE) mg/dL Urine Ketones Negative (NEGATIVE) mg/dL Urine Occult Blood Trace-intact H (NEGATIVE) Urine Nitrite Positive H (NEGATIVE) Urine Bilirubin Negative (NEGATIVE) Urine Urobilinogen 0.2 (0.2) EU/dL Ur Leukocyte Esterase Moderate H (NEGATIVE) Urine RBC 5-10 H (NOT SEEN) /HPF Urine WBC 20-30 H (NOT SEEN) /HPF Ur Squamous Epith Cells Not seen (NEGATIVE) /HPF Amorphous Sediment Moderate Urine Bacteria Many H (NEGATIVE) /HPF Urine Mucus Few H (NEGATIVE) /LPF Meds: Medications Generic Name Dose Route Start Last Admin Trade Name Freq PRN Reason Stop Dose Admin Acetaminophen 650 mg 10/03/20 22:37 Tylenol PO Q4H PRN Pain Albuterol/Ipratropium 3 ml 10/03/20 22:15 10/03/20 22:54 Duoneb 3.0-0.5 Mg/3 Ml INH 3 ml Q6HRRT JAQUELINE Administration Apixaban 2.5 mg 10/04/20 08:00 Eliquis PO BID [facility] Artificial Tears 0 ml 10/03/20 22:30 Genteal Mild To Moderate Ophth Soln EYEBOTH QID PRN Dryness Aspirin 81 mg 10/04/20 08:00 Halfprin PO DAILY [facility] Atenolol 50 mg 10/04/20 08:00 Tenormin PO DAILY [facility] Azithromycin 500 mg 10/04/20 22:00 Zithromax PO 10/09/20 22:01 Q24H [facility] Budesonide 0.5 mg 10/04/20 07:00 Pulmicort INH BIDRT [facility] Ceftriaxone Sodium 1 gm 10/04/20 20:00 Rocephin IVPUSH Q24H [facility] Citalopram Hydrobromide 40 mg 10/04/20 08:00 Celexa PO DAILY [facility] Finasteride 5 mg 10/04/20 08:00 Proscar PO DAILY [facility] Guaifenesin 600 mg 10/03/20 22:30 10/03/20 22:54 Mucinex PO 600 mg Q12HR PRN Administration for excess mucus secretions Lactated Ringer's 1,000 mls @ 50 mls/hr 10/03/20 22:15 10/03/20 22:47 Ringers, Lactated IV 50 mls/hr ASDIRECTED [facility] Administration Nifedipine 30 mg 10/04/20 08:00 Procardia Xl PO DAILY [facility] Non-Formulary Medication 2 tab 10/03/20 22:36 Calcium Carbonate [Tums] PO QID PRN GI Distress Polyethylene Glycol 17 gm 10/03/20 22:30 Miralax PO DAILY PRN Constipation Prednisone 40 mg 10/04/20 08:00 Prednisone PO WITHBREAKFAST [facility] Simvastatin 10 mg 10/04/20 08:00 Zocor PO DAILY [facility] Sodium Bicarbonate 650 mg 10/04/20 08:00 Sodium Bicarbonate PO BID [facility] Discontinued Medications Generic Name Dose Route Start Last Admin Trade Name Freq PRN Reason Stop Dose Admin Acetaminophen 1,000 mg 10/03/20 21:00 10/03/20 21:15 Tylenol Extra Strength PO 10/03/20 21:01 1,000 mg ONETIME ONE Administration Acetaminophen 325 mg 10/03/20 22:12 Tylenol PO Q4H PRN Pain Ceftriaxone Sodium 1 gm 10/03/20 20:06 10/03/20 20:16 Rocephin IVPUSH 10/03/20 20:07 1 gm STAT ONE Administration Lactated Ringer's 1,000 mls @ 125 mls/hr 10/03/20 20:06 10/03/20 20:18 Ringers, Lactated IV 10/04/20 04:05 125 mls/hr ONETIME ONE Administration Azithromycin 500 mg/ Sodium 250 mls @ 250 mls/hr 10/03/20 20:06 10/03/20 20:34 Chloride IV 10/03/20 21:05 250 mls/hr STAT ONE Administration Methylprednisolone Sodium Succinate 125 mg 10/03/20 20:20 10/03/20 20:28 Solu-Medrol IVPUSH 10/03/20 20:21 125 mg ONETIME ONE Administration - Radiology Interpretation Free Text/Narrative:: Chest x-ray per radiology shows faint bilateral interstitial pattern. - Re-Assessments/Exams Free Text/Narrative Re-Assessment/Exam: 10/03/20 20:22 IV established by the ambulance. Labs are drawn including blood cultures x2. Chest x-ray initially reviewed extemporaneously by myself concerns for a left lower lobe pneumonia. Ceftriaxone 1 g IV push, azithromycin 500 mg IV piggyback. Solu-Medrol 125 mg IV push. Lactated Ringer's 250 mill bolus 125 an hour. CBC with a WBC of 8.3 hemoglobin 8.7 which is chronic for him and a platelet of 328. His venous blood gases are unremarkable without any hypercapnia and normal pH. Sodium and potassium are normal. BUN 25 creatinine 2.5 at about baseline for this patient. Lactic acid is negative at 1.4. Troponin less than 0.017. C-reactive protein 9.4. proBNP 1256 although he does not have any sequelae on his chest x-ray of fluid overload. Urinalysis is positive for nitrites as well as moderate leukocyte esterase 20-30 WBCs. Urine culture pending. Person gets quite winded and tachypneic with any physical exertion concerning for a COPD exacerbation as well as urinary tract infection and pneumonia. I called and spoke with Dr. Sewell who is offset second press operator for the hospital. HPI ER COURSE findings and concerns were relayed to her verbally over the phone. She accepted the patient as an inpatient here for further care management and came to see the patient in the hospital this evening as well. Departure - Departure Time of Disposition: 21:06 Disposition: Admitted As Inpatient 64 Clinical Impression: Acute exacerbation of chronic obstructive pulmonary disease (COPD), UTI, Ur inary tract infectious disease Pneumonia Qualifiers: Pneumonia type: due to unspecified organism Laterality: bilateral Lung location: unspecified part of lung Qualified Code(s): J18.9 - Pneumonia, unspecified organism CRF (chronic renal failure) Qualifiers: Chronic kidney disease stage: stage 4 (severe) Qualified Code(s): N18.4 - Chronic kidney disease, stage 4 (severe) Anemia Qualifiers: Anemia type: unspecified type Qualified Code(s): D64.9 - Anemia, unspecified - Discharge Information Sepsis Event Note (ED) - Focused Exam Vital Signs: Vital Signs Temp Temp Pulse Resp BP Pulse Ox Pulse Ox 10/03/20 20:50 102.1 F H 94 28 H 143/65 H 97 10/03/20 19:50 97 10/03/20 19:45 98.6 F 99.1 F 98 30 H 180/78 H 97 - My Orders Last 24 Hours: My Active Orders 10/03/20 19:55 EKG Documentation Completion [RC] STAT 10/03/20 20:04 Blood Culture x2 Reflex Set [OM.PC] Stat 10/03/20 20:13 CULTURE BLOOD [BC] Stat PROCALCITONIN [REF] Stat 10/03/20 20:18 CULTURE BLOOD [BC] Stat 10/03/20 20:45 CULTURE URINE [RM] Stat - Assessment/Plan Last 24 Hours: My Active Orders 10/03/20 19:55 EKG Documentation Completion [RC] STAT 10/03/20 20:04 Blood Culture x2 Reflex Set [OM.PC] Stat 10/03/20 20:13 CULTURE BLOOD [BC] Stat PROCALCITONIN [REF] Stat 10/03/20 20:18 CULTURE BLOOD [BC] Stat 10/03/20 20:45 CULTURE URINE [RM] Stat
[2020-10-03] MEDS ORDERED: methylPREDNISolone Sodium Succinate 125 MG/2 ML SDV IVPUSH ONE (20:20)
--- NOTE | 2020-10-03 20:27 | CR ---
[id number] RAD/RAD Chest Portable EXAM: PORTABLE CHEST RADIOGRAPH. INDICATION: TACHYPNEA COMPARISON: CORRELATION IS MADE WITH JANUARY 06, 2020 FINDINGS: There is a faint interstitial pattern The cardiomediastinal contour is stable IMPRESSION: FAINT BILATERAL INTERSTITIAL PATTERN Go Smith MD 10/03/202025 Thank you for allowing us to participate in the care of your patient.
[2020-10-03 20:55] LABS: CHLORIDE,CL 99 mmol/L (98-107); SODIUM,NA 136 mmol/L (136-145)
[2020-10-03 21:00] LABS: ANION GAP 13.9 mmol/L (10-20)
[2020-10-03] MEDS ORDERED: Acetaminophen 500 MG Tab PO ONE (21:00)
[2020-10-03] MEDS ORDERED: Acetaminophen 325 MG Tab PO PRN (22:12)
--- NOTE | 2020-10-03 22:20 | PCM.HP.2 ---
H&P History of Present Illness - General Date of Service: 10/03/20 Admit Problem/Dx: Admission Diagnosis/Problem Admission Diagnosis/Problem Pneumonia Source of Information: Patient, Longterm Records History Limitations: Reports: Altered Mental Status - History of Present Illness Initial Comments - Free Text/Narative: Mr. Gonzalez is an 80 yo male with PMH of moderate COPD chronically on 2L of oxygen, allergies, HTN, PVD, paroxysmal a-fib, hyperlipidemia, depression with anxiety, chronic anemia, constipation, BPH, osteoarthritis, and recent COVID-19 infection (positive test 09/03 - never had symptoms) who was transferred from the residential to the emergency room this evening due to a change in mental status noted on evening rounds. The patient is a questionable historian due to confusion today. He states that he has had 3-4 days of subjective fevers, cough productive of thin sputum, and increased shortness of breath. He has also had some congestion and some occasional dysuria. He has been on his usual inhalers and he also was started on Mucinex. This did help somewhat. However, I was contacted by the care center nurse due to an episode this evening where the patient was found to be tachypneic, less responsive than normal, and with lower oxygen saturations than normal. He was given his PRN inhaler. His breathing did improve but his mentation did not return to baseline. Therefore, he was transferred to the emergency room for further evaluation. The patient does have a history of COPD that is fairly significant. He states symptoms are similar to prior exacerbations. As above, he did have a positive COVID test on September 03 but has not been known to have symptoms secondary to that. He states that his appetite has been good. He has had no nausea, vomiting, or diarrhea. He denies any issues voiding besides the dysuria. - Related Data Allergies/Adverse Reactions: Allergies Allergy/AdvReac Type Severity Reaction Status Date / Time Penicillins Allergy Other Verified 10/03/20 20:51 tizanidine [From Zanaflex] Allergy Cannot Verified 10/03/20 20:51 Remember Home Medications: Home Meds Albuterol Sulfate [Proair Hfa] 2 puff PO Q4H PRN 07/11/16 [History] Aspirin [Halfprin] 81 mg PO DAILY 07/11/16 [History] Citalopram Hydrobromide [Celexa] 40 mg PO DAILY 07/11/16 [History] Multivitamin [Multivitamins] 1 tab PO DAILY 07/11/16 [History] Polyvinyl Alcohol [Artificial Tears] 1 drop EYEBOTH QID PRN 07/11/16 [History] Simvastatin [Zocor] 10 mg PO DAILY 07/11/16 [History] atenoloL [Tenormin] 50 mg PO DAILY 07/11/16 [History] Albuterol/Ipratropium [DuoNeb 3.0-0.5 MG/3 ML] 3 ml INH Q6H 10/15/18 [History] Budesonide [Pulmicort] 0.5 mg IH BID 10/15/18 [History] Dutasteride [Avodart] 0.5 mg PO DAILY 10/15/18 [History] polyethylene glycoL 3350 [Miralax] 17 gm PO DAILY PRN 10/15/18 [History] Acetaminophen [Tylenol] 325 mg PO Q4H PRN 06/16/20 [History] Apixaban [Eliquis] 2.5 mg PO BID 06/16/20 [History] NIFEdipine [Nifedipine ER] 30 mg PO DAILY 06/16/20 [History] Calcium Carbonate [Tums] 2 tab PO QID PRN 10/03/20 [History] Sodium Bicarbonate 650 mg PO BID PRN 10/03/20 [History] guaiFENesin [Mucinex] 600 mg PO Q12HR PRN 10/03/20 [History] Past Medical History HEENT History: Reports: Allergic Rhinitis, Cataract Cardiovascular History: Reports: Arrhythmia (atrial fibrillation), High Cholesterol, Hypertension, PVD Respiratory History: Reports: COPD Gastrointestinal History: Reports: Other (See Below) Other Gastrointestinal History: hernia umbilical Genitourinary History: Reports: BPH, Other (See Below) Other Genitourinary History: turp- 10/06/18- sahni placed Musculoskeletal History: Reports: Osteoarthritis, Other (See Below) Other Musculoskeletal History: fatigue Neurological History: Reports: Other (See Below) (mild cognitive impairment) Psychiatric History: Reports: Addiction, Anxiety, Depression Other Endocrine/Metabolic History: hyperglycemia Hematologic History: Reports: Anemia Immunologic History: Reports: None Oncologic (Cancer) History: Reports: None Dermatologic History: Reports: None - Past Surgical History HEENT Surgical History: Reports: Cataract Surgery, Tonsillectomy Cardiovascular Surgical History: Reports: Carotid Endarterectomy Male Surgical History: Reports: Prostatectomy, TURP-Transurethral Resection of Prostate Neurological Surgical History: Reports: None Oncologic Surgical History: Reports: None Social & Family History - Family History Cardiac: Reports: CAD, Hypertension Endocrine/Metabolic: Reports: Diabetes, type II - Tobacco Use Tobacco Use Status *Q: Former Tobacco User - Alcohol Use Alcohol Use History: Yes Alcohol Use in Last Twelve Months: No - Recreational Drug Use Recreational Drug Use: No - Living Situation & Occupation Living situation: Reports: , Alone Occupation: Retired H&P Review of Systems - Review of Systems: Review Of Systems: See Below General: Reports: Fever, Chills, Malaise HEENT: Reports: Rhinitis, Sinus Congestion. Denies: Headaches, Sore Throat Pulmonary: Reports: Shortness of Breath, Cough Cardiovascular: Reports: No Symptoms Gastrointestinal: Reports: No Symptoms Genitourinary: Reports: Dysuria. Denies: Frequency, Urgency, Incontinence Musculoskeletal: Reports: No Symptoms Skin: Reports: No Symptoms Psychiatric: Reports: Confusion Exam - Exam Exam: See Below - Vital Signs Vital Signs: Last Vital Signs Temp 38.9 C H 10/03/20 21:15 Pulse 94 10/03/20 20:50 Resp 28 H 10/03/20 20:50 BP 143/65 H 10/03/20 20:50 Pulse Ox 97 10/03/20 20:50 Weight: 65.317 kg - Exam General: Alert (not oriented to place or time), Cooperative HEENT: Conjunctiva Clear, Mucosa Moist & [place], Posterior Pharynx Clear, Pupils Equal, Pupils Reactive Neck: Supple, Trachea Midline. No: Lymphadenopathy, Thyromegaly Lungs: Normal Respiratory Effort, Crackles (at the bases bilaterally (R>L)) Cardiovascular: Regular Rate, Regular Rhythm, Normal S1, Normal S2 GI/Abdominal Exam: Normal Bowel Sounds, Soft, Non-Tender, No Organomegaly, No Distention, No Mass Extremities: Normal Inspection, Non-Tender, No Pedal Edema, Normal Capillary Refill Peripheral Pulses: 2+: Radial (L), Radial (R) Skin: Warm, Dry, Intact Neuro Extensive - Mental Status: Alert - Patient Data Lab Results Last 24 hrs: Laboratory Results - last 24 hr 12/09/20 12/09/20 12/09/20 Range/Units 20:13 20:13 20:13 WBC 8.3 (4.0-10.0) x10^3/uL RBC 2.95 L (4.5-6.0) x10^6/uL Hgb 8.7 L D (14.0-18.0) g/dL Hct 27.8 L (40.0-52.0) % MCV 94.2 H D (78.0-93.0) fL MCH 29.5 (26.0-32.0) pg MCHC 31.3 L (32.0-36.0) g/dL RDW Coeff of Anthony 12.8 (10.0-15.0) % Plt Count 328 D (130-400) x10^3/uL Neut % (Auto) 77.8 (50.0-80.0) % Lymph % (Auto) 10.9 L (25.0-50.0) % [place] % (Auto) 9.7 (2.0-11.0) % Eos % (Auto) 1.4 (0.0-4.0) % Baso % (Auto) 0.2 (0.2-1.2) % POC VBG pH (7.32-7.43) pH POC VBG pCO2 (41-51) mmHg POC VBG pO2 mmHg POC VBG HCO3 (22-29) mmol/L POC Venous O2 Sat % VBG Base Excess (-(2)-3) mmol/L POC FiO2 Sodium 136 (136-145) mmol/L Potassium 4.9 (3.5-5.1) mmol/L Chloride 99 (98-107) mmol/L Carbon Dioxide 28 (21-32) mmol/L POC Venous Total CO2 Anion Gap 13.9 (10-20) mmol/L BUN 25 H D (7-18) mg/dL Creatinine 2.5 H D (0.70-1.30) mg/dL Est Cr Clr Drug Dosing TNP Estimated GFR (MDRD) 25 Glucose 116 H (74-106) mg/dL Lactic Acid 1.4 (0.4-2.0) mmol/L Calcium 8.9 (8.5-10.1) mg/dL Corrected Calcium 9.94 (8.5-10.1) mg/dL Total Bilirubin 0.4 (0.2-1.0) mg/dL AST 20 (15-37) U/L ALT 31 (16-63) U/L Alkaline Phosphatase 109 (46-116) U/L Troponin I < 0.017 (<=0.056) ng/mL C-Reactive Protein 9.4 H (<=0.9) mg/dL NT-Pro-B Natriuret Pep 1256 H (<=450) pg/mL Total Protein 7.6 (6.4-8.2) g/dL Albumin 2.7 L (3.4-5.0) g/dL Globulin 4.9 Albumin/Globulin Ratio 0.55 Urine Color (YELLOW) Urine Appearance (CLEAR) Urine pH (5.0-8.0) Ur Specific [place] Urine Protein (NEGATIVE) mg/dL Urine Glucose (UA) (NEGATIVE) mg/dL Urine Ketones (NEGATIVE) mg/dL Urine Occult Blood (NEGATIVE) Urine Nitrite (NEGATIVE) Urine Bilirubin (NEGATIVE) Urine Urobilinogen (0.2) EU/dL Ur Leukocyte Esterase (NEGATIVE) Urine RBC (NOT SEEN) /HPF Urine WBC (NOT SEEN) /HPF Ur Squamous Epith Cells (NEGATIVE) /HPF Amorphous Sediment Urine Bacteria (NEGATIVE) /HPF Urine Mucus (NEGATIVE) /LPF 10/03/20 10/03/20 Range/Units 20:13 20:45 WBC (4.0-10.0) x10^3/uL RBC (4.5-6.0) x10^6/uL Hgb (14.0-18.0) g/dL Hct (40.0-52.0) % MCV (78.0-93.0) fL MCH (26.0-32.0) pg MCHC (32.0-36.0) g/dL RDW Coeff of Anthony (10.0-15.0) % Plt Count (130-400) x10^3/uL Neut % (Auto) (50.0-80.0) % Lymph % (Auto) (25.0-50.0) % [place] % (Auto) (2.0-11.0) % Eos % (Auto) (0.0-4.0) % Baso % (Auto) (0.2-1.2) % POC VBG pH 7.32 (7.32-7.43) pH POC VBG pCO2 51 (41-51) mmHg POC VBG pO2 51 mmHg POC VBG HCO3 26 (22-29) mmol/L POC Venous O2 Sat 83 % VBG Base Excess 0 (-(2)-3) mmol/L POC FiO2 0.28 Sodium (136-145) mmol/L Potassium (3.5-5.1) mmol/L Chloride (98-107) mmol/L Carbon Dioxide (21-32) mmol/L POC Venous Total CO2 TNP Anion Gap (10-20) mmol/L BUN (7-18) mg/dL Creatinine (0.70-1.30) mg/dL Est Cr Clr Drug Dosing Estimated GFR (MDRD) Glucose (74-106) mg/dL Lactic Acid (0.4-2.0) mmol/L Calcium (8.5-10.1) mg/dL Corrected Calcium (8.5-10.1) mg/dL Total Bilirubin (0.2-1.0) mg/dL AST (15-37) U/L ALT (16-63) U/L Alkaline Phosphatase (46-116) U/L Troponin I (<=0.056) ng/mL C-Reactive Protein (<=0.9) mg/dL NT-Pro-B Natriuret Pep (<=450) pg/mL Total Protein (6.4-8.2) g/dL Albumin (3.4-5.0) g/dL Globulin Albumin/Globulin Ratio Urine Color Yellow (YELLOW) Urine Appearance Cloudy H (CLEAR) Urine pH 7.0 (5.0-8.0) Ur Specific [place] 1.015 Urine Protein 30 H (NEGATIVE) mg/dL Urine Glucose (UA) Negative (NEGATIVE) mg/dL Urine Ketones Negative (NEGATIVE) mg/dL Urine Occult Blood Trace-intact H (NEGATIVE) Urine Nitrite Positive H (NEGATIVE) Urine Bilirubin Negative (NEGATIVE) Urine Urobilinogen 0.2 (0.2) EU/dL Ur Leukocyte Esterase Moderate H (NEGATIVE) Urine RBC 5-10 H (NOT SEEN) /HPF Urine WBC 20-30 H (NOT SEEN) /HPF Ur Squamous Epith Cells Not seen (NEGATIVE) /HPF Amorphous Sediment Moderate Urine Bacteria Many H (NEGATIVE) /HPF Urine Mucus Few H (NEGATIVE) /LPF Result Diagrams: 10/03/20 20:13 10/03/20 20:13 Sepsis Event Note - Evaluation Sepsis Screening Result: Severe Sepsis Risk - Focused Exam Vital Signs: Vital Signs Temp Temp Temp Pulse Resp BP Pulse Ox 10/03/20 21:15 38.9 C H 10/03/20 20:50 38.9 C H 94 28 H 143/65 H 97 10/03/20 19:50 10/03/20 19:45 37.0 C 37.3 C 98 30 H 180/78 H 97 Pulse Ox 10/03/20 21:15 10/03/20 20:50 10/03/20 19:50 97 10/03/20 19:45 *Q Meaningful Use (ADM) - VTE *Q VTE Anticoagulation Contraindications: Med/TX Not Indicated/Need - Problem List (1) Pneumonia SNOMED Code(s): 155093263 ICD Code: J18.9 - PNEUMONIA, UNSPECIFIED ORGANISM Status: Acute Current Visit: Yes Qualifiers: Pneumonia type: due to unspecified organism Laterality: bilateral Lung location: unspecified part of lung Qualified Code(s): J18.9 - Pneumonia, unspecified organism (2) Respiratory failure SNOMED Code(s): 285584488 ICD Code: J96.90 - RESPIRATORY FAILURE, UNSP, UNSP W HYPOXIA OR HYPERCAPNIA Status: Acute Current Visit: Yes Qualifiers: Chronicity: acute on chronic Respiratory failure complication: hypoxia Qualified Code(s): J96.21 - Acute and chronic respiratory failure with hypoxia (3) Acute exacerbation of chronic obstructive pulmonary disease (COPD) SNOMED Code(s): 936916168 ICD Code: J44.1 - CHRONIC OBSTRUCTIVE PULMONARY DISEASE W (ACUTE) EXACERBATION Status: Acute Current Visit: Yes (4) UTI, Urinary tract infectious disease SNOMED Code(s): 69963118 ICD Code: N39.0 - URINARY TRACT INFECTION, SITE NOT SPECIFIED Status: Acute Current Visit: Yes (5) Anemia SNOMED Code(s): 998455528 ICD Code: D64.9 - ANEMIA, UNSPECIFIED Status: Chronic Current Visit: Yes Qualifiers: Anemia type: unspecified type Qualified Code(s): D64.9 - Anemia, unspecified (6) CRF (chronic renal failure) SNOMED Code(s): 06447701 ICD Code: N18.9 - CHRONIC KIDNEY DISEASE, UNSPECIFIED Status: Chronic Current Visit: Yes Qualifiers: Chronic kidney disease stage: stage 4 (severe) Qualified Code(s): N18.4 - Chronic kidney disease, stage 4 (severe) (7) BPH (benign prostatic hyperplasia) SNOMED Code(s): 307635126 ICD Code: N40.0 - BENIGN PROSTATIC HYPERPLASIA WITHOUT LOWER URINRY TRACT SYMP Status: Chronic Current Visit: No Qualifiers: Lower urinary tract symptom presence: symptoms present Lower urinary tract symptom detail: unspecified Qualified Code(s): N40.1 - Benign prostatic hyperplasia with lower urinary tract symptoms (8) Depression SNOMED Code(s): 90583159 ICD Code: F32.9 - MAJOR DEPRESSIVE DISORDER, SINGLE EPISODE, UNSPECIFIED Status: Chronic Current Visit: No Qualifiers: Depression Type: unspecified Qualified Code(s): F32.9 - Major depressive disorder, single episode, unspecified (9) Atrial fibrillation SNOMED Code(s): 89811884 ICD Code: I48.91 - UNSPECIFIED ATRIAL FIBRILLATION Status: Chronic Current Visit: Yes Qualifiers: Atrial fibrillation type: paroxysmal Qualified Code(s): I48.0 - Paroxysmal atrial fibrillation (10) Hypertension SNOMED Code(s): 11408239 ICD Code: I10 - ESSENTIAL (PRIMARY) HYPERTENSION Status: Chronic Current Visit: Yes Qualifiers: Hypertension type: essential hypertension Qualified Code(s): I10 - Essential (primary) hypertension (11) Hyperlipidemia SNOMED Code(s): 78685251 ICD Code: E78.5 - HYPERLIPIDEMIA, UNSPECIFIED Status: Chronic Current Visit: Yes Qualifiers: Hyperlipidemia type: unspecified Qualified Code(s): E78.5 - Hyperlipidemia, unspecified (12) Constipation SNOMED Code(s): 40047318 ICD Code: K59.00 - CONSTIPATION, UNSPECIFIED Status: Chronic Current Visit: Yes Qualifiers: Constipation type: unspecified constipation type Qualified Code(s): K59.00 - Constipation, unspecified (13) Depression with anxiety SNOMED Code(s): 314335138 ICD Code: F41.8 - OTHER SPECIFIED ANXIETY DISORDERS Status: Chronic Current Visit: Yes Problem List Initiated/Reviewed/Updated: Yes Orders Last 24hrs: Active Orders 24 hr Category Date Time Status Admission Status [Patient Status] [ADT] Routine ADT 10/03/20 21:10 Active Dietary Supplements [RC] BIDMEALS Care 12/09/20 22:10 Ordered EKG Documentation Completion [RC] STAT Care 10/03/20 19:55 Active Notify Provider Vital Signs [RC] ASDIRECTED Care 10/03/20 22:09 Ordered Oxygen Therapy [RC] PRN Care 10/03/20 22:08 Ordered RT Aerosol Therapy [RC] ASDIRECTED Care 10/03/20 22:14 Ordered Up With Assistance [RC] ASDIRECTED Care 10/03/20 22:08 Ordered VTE/DVT Education [RC] PER UNIT ROUTINE Care 10/03/20 22:08 Ordered Vital Signs [RC] Q4H Care 10/03/20 22:08 Ordered Regular Diet [DIET] Diet 10/03/20 Breakfast Ordered CULTURE BLOOD [BC] Stat Lab 10/03/20 20:13 Received CULTURE BLOOD [BC] Stat Lab 10/03/20 20:18 Received CULTURE URINE [RM] Stat Lab 10/03/20 20:45 Received PROCALCITONIN [REF] Stat Lab 10/03/20 20:13 Received Acetaminophen [TylenoL] Med 10/03/20 22:12 Ordered 325 mg PO Q4H PRN Albuterol/Ipratropium [DuoNeb 3.0-0.5 MG/3 ML] Med 10/03/20 22:15 Ordered 3 ml INH Q6H Apixaban [Eliquis] Med 10/04/20 08:00 Ordered 2.5 mg PO BID Aspirin [Halfprin] Med 10/04/20 08:00 Ordered 81 mg PO DAILY Azithromycin [Zithromax] Med 10/04/20 22:15 Ordered 500 mg PO Q24H Budesonide [Pulmicort] Med 10/04/20 08:00 Ordered 0.5 mg INH BID Citalopram Hydrobromide [Celexa] Med 10/04/20 08:00 Ordered 40 mg PO DAILY Dutasteride [Avodart] Med 10/04/20 08:00 Ordered 0.5 mg PO DAILY Lactated Ringers @ 50 MLS/HR(1000ml) Med 10/03/20 22:15 Ordered Lactated Ringers [Ringers, Lactated] 1,000 ml IV ASDIRECTED cefTRIAXone [Rocephin] Med 10/04/20 22:15 Ordered 1 gm IVPUSH Q24H predniSONE Med 10/04/20 08:00 Ordered 40 mg PO WITHBREAKFAST Anticoagulation Contraindications VTE [AST] Per Unit Oth 10/03/20 22:08 Ordered Routine Blood Culture x2 Reflex Set [OM.PC] Stat Oth 10/03/20 20:04 Ordered Resuscitation Status Routine Resus Stat 10/03/20 22:08 Ordered Medication Orders Azithromycin (Zithromax) 500 mg PO Q24H JAQUELINE Stop: 10/09/20 22:16 Ceftriaxone Sodium (Rocephin) 1 gm IVPUSH Q24H [facility] Lactated Ringer's (Ringers, Lactated) 1,000 mls @ 50 mls/hr IV ASDIRECTED JAQUELINE Prednisone (Prednisone) 40 mg PO WITHBREAKFAST JAQUELINE Assessment/Plan Comment:: 80 yo male admitted with acute on chronic hypoxic respiratory failure secondary to CAP. #1 Pneumonia #2 Acute on chronic hypoxic respiratory failure - Patient does not meet sepsis criteria. - CURB-65 score is 3, which warrants inpatient admission/treatment. - He will get gentle IV fluids given underlying CKD. Got a bolus in the ER but will decrease rate to 50 mL/hr overnight. - Received azithromycin and ceftriaxone in the ER. Will continue both daily. - Blood cultures pending. - On 2L of oxygen chronically. Currently on 3-4L and will wean as able. Goal saturations 90-92% given underlying COPD. #3 COPD with acute exacerbation - Although he is not wheezing on exam, he recently received nebs and steroids. - Symptoms are consistent with a COPD exacerbation as well. - Therefore, will treat with prednisone 40 mg daily in addition to the antibiotics as above. - Continue scheduled neb treatments as per residential orders. #4 UTI - U/A positive and patient endorses intermittent dysuria. - Urine culture pending. - Ceftriaxone should cover this appropriately as well. #5 Anemia, chronic - Hgb around his baseline, which ranges from 9-10. - Will monitor daily. #6 Chronic renal failure - Creatinine also at baseline of 2.5. - Will be judicious with IV fluids in order to limit risk of fluid overload. - Ordered for 50 mL/hour overnight. #7 BPH #8 Depression #10 A-fib #11 Hypertension #12 Hyperlipidemia #13 Constipation #14 Depression and anxiety - Continue home medications. Patient will be admitted to acute as it is anticipated he will need at least 48 hours of IV antibiotics. Will plan for d/c back to the care center when able. On discussion of code status, he voiced that he wanted to be DNR/DNI. However, this is different than what he has stated previously and different than his residential orders. Therefore, this was clarified with his son and POA, Maxx. He does not feel this is truly what his dad would want given prior status of full code. Therefore, will do full code tonight. If patient mentation improves and he still states he is DNR/DNI, will update code status as such. Patient is on eliquis, which will be continued; no other VTE prophylaxis indicated.
[2020-10-03] MEDS ORDERED: Polyethylene Glycol 3350 Powder 17 GM Packet PO PRN (22:30)
[2020-10-03] MEDS ORDERED: Hypromellose 0.3% Ophth Soln 15 ML Bottle EYEBOTH PRN (22:30)
[2020-10-03] MEDS ORDERED: guaiFENesin 600 MG Tab.ER PO PRN (22:30)
[2020-10-03] MEDS: Lactated Ringers 1,000 ML IV SCH (22:47)
[2020-10-03] MEDS: Albuterol/Ipratropium 3.0-0.5 MG/3 ML Neb Soln INH SCH (22:54)
[2020-10-04] MEDS: Albuterol/Ipratropium 3.0-0.5 MG/3 ML Neb Soln INH SCH ×4 (01:30→18:23)
[2020-10-04 07:30] LABS: ANION GAP 13.4 mmol/L (10-20)
[2020-10-04] MEDS: Budesonide 0.5 MG/2 ML Neb Susp INH SCH ×2 (07:42→19:39)
[2020-10-04] MEDS ORDERED: Citalopram 20 MG Tab PO SCH (08:00)
[2020-10-04] MEDS: predniSONE 20 MG Tab PO SCH (08:23)
[2020-10-04] MEDS: Atenolol 50 MG Tab PO SCH (08:23)
[2020-10-04] MEDS: Finasteride 5 MG Tab PO SCH (08:28)
[2020-10-04] MEDS: NIFEdipine 30 MG Tab.ER PO SCH (08:28)
[2020-10-04] MEDS: Simvastatin 10 MG Tab PO SCH (08:28)
[2020-10-04] MEDS: Sodium Bicarbonate 650 MG Tab PO SCH ×2 (08:28→19:39)
[2020-10-04] MEDS: Apixaban 2.5 MG Tab PO SCH ×2 (08:28→19:39)
[2020-10-04] MEDS: Aspirin 81 MG Tab.EC PO SCH (08:29)
--- NOTE | 2020-10-04 09:19 | PN ---
Progress Note for ZACHARY JIMENEZ Date: 10/04/2020 Room #: VM.216 SUBJECTIVE: This is the patient's second hospital day. He was admitted yesterday with confusional oxygen levels, seemed to be slight pneumonitis, and exacerbation of COPD with a UTI present. He was given Rocephin, Zithromax, and some IV fluids. He is feeling much better. Today, he is thinking more clear. He was aware that he was more confused last night. The patient was questioned about code level status and he states no. He would like to have things done such as intubation or CPR if he would have problems in that department, so therefore he will stay full code level, whereas last evening he had thought he did not want that done. OBJECTIVE: Vital Signs: His temperature is 36.6, had been up to 38.9 last evening, pulse is 74, blood pressure is 105/58, respiratory rate is 24, sats are 95% on 2 L. General: He is alert, pleasant to visit with. Heart: Irregularly irregular. Lungs: Have diminished breath sounds in bases. Abdomen: Soft. Lower Extremities: No edema. Neurologic: He is alert, pleasant, talkative to visit with. Seems to be at his baseline self. LABORATORY WORK: Today shows his white blood cell count is normal at 8.0, hemoglobin has dropped to 7.6, platelets are 261. Sodium is 136, potassium 4.4, creatinine stable at 2.4, GFR is 26. CRP has gone up to 10.3. ProBNP was elevated yesterday at 1256. Urinalysis came back abnormal with 20-30 white blood cells, many bacteria. IMPRESSION: 1. Pneumonia. 2. Exacerbation of chronic obstructive pulmonary disease. 3. Urinary tract infection. 4. Anemia of chronic disease. 5. Chronic kidney disease. 6. Chronic depression. 7. Mild cognitive dysfunction. 8. Chronic obstructive pulmonary disease. PLAN: We will continue the patient on IV Rocephin and Zithromax. We will continue slow IV fluid rate. He is on oral steroids. We will check for influenza and the patient will be seen by Therapies today for strengthening. Potentially, the patient could be ready to be [facility]. However, he needs to be afebrile for at least 24 hours. GM10/04/2020 08:23:00 MODL: 10/04/2020 09:13:24 /[id number]
[2020-10-04] MEDS: Lactated Ringers 1,000 ML IV SCH (17:11)
[2020-10-04] MEDS: Ondansetron 4 MG Tab.DIS PO PRN (18:24)
[2020-10-04] MEDS: cefTRIAXone 1 GM Vial IVPUSH SCH (19:38)
[2020-10-04] MEDS: Beta-Carotene (Vitamin A) w/Vitamin C & E plus Minerals Tab PO SCH (19:39)
[2020-10-04] MEDS: Azithromycin 250 MG Tab PO SCH (21:15)
[2020-10-05] MEDS: Albuterol/Ipratropium 3.0-0.5 MG/3 ML Neb Soln INH SCH ×5 (00:52→18:05)
[2020-10-05] MEDS: Budesonide 0.5 MG/2 ML Neb Susp INH SCH ×3 (05:51→19:26)
[2020-10-05] MEDS: Citalopram 10 MG Tab PO SCH (08:33)
[2020-10-05] MEDS: predniSONE 20 MG Tab PO SCH (08:33)
[2020-10-05] MEDS: Apixaban 2.5 MG Tab PO SCH ×2 (08:33→19:24)
[2020-10-05] MEDS: Aspirin 81 MG Tab.EC PO SCH (08:33)
[2020-10-05] MEDS: NIFEdipine 30 MG Tab.ER PO SCH (08:34)
[2020-10-05] MEDS: Finasteride 5 MG Tab PO SCH (08:34)
[2020-10-05] MEDS: Atenolol 50 MG Tab PO SCH (08:35)
[2020-10-05] MEDS: Sodium Bicarbonate 650 MG Tab PO SCH ×2 (08:35→19:24)
[2020-10-05] MEDS: Beta-Carotene (Vitamin A) w/Vitamin C & E plus Minerals Tab PO SCH ×2 (08:35→19:24)
[2020-10-05] MEDS: Simvastatin 10 MG Tab PO SCH (08:36)
[2020-10-05] MEDS: Cholecalciferol (Vitamin D3) 25 MCG Tab PO SCH (08:36)
--- NOTE | 2020-10-05 09:37 | PN ---
Progress Note for ZACHARY JIMENEZ Date: 10/05/2020 Room #: VM.216 SUBJECTIVE: The patient is feeling much better today. He is talkative. He still has a little bit of a cough. He is getting stronger. His appetite is improved. He is not confused like he had been. OBJECTIVE: Vital Signs: His temperature is 36.6. He has been afebrile for the past 24 hours. His pulse is 79, blood pressure is 121/43, respiratory rate is 20, sats are 96% on 2 L. Heart: Regular rate and rhythm. Lungs: Have a few inspiratory wheezes on bases. Abdomen: Soft. Extremities: No edema. LABORATORY WORK: Shows white blood cell count 8.5, hemoglobin is stable at 7.3, platelets are 297. Sodium 136, potassium 4.0, creatinine improved to 2.0 about his baseline, GFR is 32, glucose is 126. LFTs are normal. CRP is improved to 6.5. ProBNP has gone up to 4393. IMPRESSION: 1. Urosepsis. 2. Urinary tract infection with Escherichia coli. 3. Gram-negative rods in blood. 4. Exacerbation of chronic obstructive pulmonary disease. 5. Recent coronavirus disease infection. 6. Acute kidney injury, improved. 7. Confusion, improved. 8. Chronic kidney disease. PLAN: We will stop the patient's maintenance IV fluids right now. We will review his chest x-ray. If stable, maybe able to reduce his prednisone to 20 mg tomorrow. He is still being continued on IV Rocephin and the Zithromax will be ending on the . The patient possibly may be able to be discharged to [facility] tomorrow if his hemoglobin has stayed stable and his respiratory function has stayed stable, and depending on how the results of his chest x-ray are today, we will have Dr. Nichole Larsen follow up the patient tomorrow. GM10/05/2020 08:36:49 MODL: 10/05/2020 09:29:43 /[id number]
--- NOTE | 2020-10-05 10:26 | CR ---
[id number] RAD/RAD Chest PA And Lateral EXAM: FRONTAL AND LATERAL CHEST INDICATION: PNEUMONIA FOLLOW UP. COMPARISON: October 03, 2020. DISCUSSION: Mild bilateral interstitial infiltrates and/or edema are again suggested, but have improved relative to the prior study. COPD. A moderate to severe mid to upper thoracic compression fracture demonstrates progressive height loss. No effusion. Chronic healed bilateral rib fractures. IMPRESSION: 1. Mild bilateral interstitial edema and/or infiltrates have slightly improved. Fabio Cui MD 10/05/20 [id number] Thank you for allowing us to participate in the care of your patient.
[2020-10-05] MEDS: Benzocaine/Cetylpyridinium/Menthol Lozenge MUCMEM PRN (10:32)
[2020-10-05] MEDS: Acetaminophen 325 MG Tab PO PRN (11:48)
[2020-10-05] MEDS: cefTRIAXone 1 GM Vial IVPUSH SCH (19:24)
[2020-10-05] MEDS: Azithromycin 250 MG Tab PO SCH (21:09)
[2020-10-06] MEDS: Albuterol/Ipratropium 3.0-0.5 MG/3 ML Neb Soln INH SCH ×5 (01:06→18:06)
[2020-10-06] MEDS: Acetaminophen 325 MG Tab PO PRN (05:38)
[2020-10-06] MEDS: Budesonide 0.5 MG/2 ML Neb Susp INH SCH ×3 (05:41→20:30)
[2020-10-06 08:11] LABS: ANION GAP 10.5 mmol/L (10-20)
[2020-10-06] MEDS: Finasteride 5 MG Tab PO SCH (08:38)
[2020-10-06] MEDS: Sodium Bicarbonate 650 MG Tab PO SCH ×2 (08:41→20:31)
[2020-10-06] MEDS: Simvastatin 10 MG Tab PO SCH (08:41)
[2020-10-06] MEDS: Beta-Carotene (Vitamin A) w/Vitamin C & E plus Minerals Tab PO SCH ×2 (08:41→20:30)
[2020-10-06] MEDS: Cholecalciferol (Vitamin D3) 25 MCG Tab PO SCH (08:41)
[2020-10-06] MEDS: Apixaban 2.5 MG Tab PO SCH ×2 (08:41→20:31)
[2020-10-06] MEDS: Citalopram 10 MG Tab PO SCH (08:41)
[2020-10-06] MEDS: predniSONE 20 MG Tab PO SCH (08:41)
[2020-10-06] MEDS: Aspirin 81 MG Tab.EC PO SCH (08:41)
[2020-10-06] MEDS: Atenolol 50 MG Tab PO SCH (08:42)
[2020-10-06] MEDS: NIFEdipine 30 MG Tab.ER PO SCH (08:42)
[2020-10-06] MEDS: Benzocaine/Cetylpyridinium/Menthol Lozenge MUCMEM PRN (08:57)
--- NOTE | 2020-10-06 11:38 | PCM.PN ---
- General Info Date of Service: 10/06/20 Admission Dx/Problem (Free Text): Admission Diagnosis/Problem Admission Diagnosis/Problem Pneumonia Subjective Update: Hoang is an 80-year-old male, resident of [facility], who was admitted on 10/03/2024 with suspected pneumonia secondary to covid-19. Labwork was revealing of a urosepsis picture instead and patient was thought to just have exacerbation of his COPD. Patient has been on IV antibiotics: Rocephin and Zosyn with plans to continue these through 10/09/2020. Patient states that he is feeling a little bit better this morning compared to previously. Still continues on supplemental oxygen (back to baseline demands) and the prednisone burst for COPD. Patient that he did have a fever reported early this morning (100.5); he himself states that he did feel little bit warm at that time. His primary had discussed potentially discharging him back to the [place] [facility] today however given the fever this morning I do not feel comfortable doing this and think that he should remain in the hospital for IV antibiotics. He is in agreement with this plan however is getting very frustrated with his prolonged illness over the last month. Eating and voiding well, no confusion. - Patient Data Vitals - Most Recent: Last Vital Signs Temp 99.2 F 10/06/20 10:00 Pulse 77 10/06/20 10:00 Resp 18 10/06/20 10:00 BP 103/43 L 10/06/20 10:00 Pulse Ox 91 L 10/06/20 10:00 Weight - Most Recent: 144 lb I&O - Last 24 Hours: Intake & Output 10/05/20 10/06/20 10/06/20 22:59 06:59 14:59 Intake Total 660 300 240 Output Total 225 250 Balance 435 50 240 Lab Results Last 24 Hours: Laboratory Results - last 24 hr 10/03/20 10/06/20 10/06/20 Range/Units 20:13 07:29 07:29 WBC 6.7 (4.0-10.0) x10^3/uL RBC 2.56 L (4.5-6.0) x10^6/uL Hgb 7.4 L (14.0-18.0) g/dL Hct 23.9 L (40.0-52.0) % MCV 93.4 H (78.0-93.0) fL MCH 28.9 (26.0-32.0) pg MCHC 31.0 L (32.0-36.0) g/dL RDW Coeff of Anthony 12.8 (10.0-15.0) % Plt Count 296 (130-400) x10^3/uL Neut % (Auto) 81.6 H (50.0-80.0) % Lymph % (Auto) 8.5 L (25.0-50.0) % [place] % (Auto) 9.9 (2.0-11.0) % Eos % (Auto) 0.0 (0.0-4.0) % Baso % (Auto) 0.0 L (0.2-1.2) % Sodium (136-145) mmol/L Potassium (3.5-5.1) mmol/L Chloride (98-107) mmol/L Carbon Dioxide (21-32) mmol/L Anion Gap (10-20) mmol/L BUN (7-18) mg/dL Creatinine (0.70-1.30) mg/dL Est Cr Clr Drug Dosing mL/min Estimated GFR (MDRD) Glucose (74-106) mg/dL Calcium (8.5-10.1) mg/dL C-Reactive Protein (<=0.9) mg/dL Procalcitonin 0.12 H ng/mL Blood Type O POSITIVE Gel Antibody Screen Negative 10/06/20 Range/Units 07:29 WBC (4.0-10.0) x10^3/uL RBC (4.5-6.0) x10^6/uL Hgb (14.0-18.0) g/dL Hct (40.0-52.0) % MCV (78.0-93.0) fL MCH (26.0-32.0) pg MCHC (32.0-36.0) g/dL RDW Coeff of Anthony (10.0-15.0) % Plt Count (130-400) x10^3/uL Neut % (Auto) (50.0-80.0) % Lymph % (Auto) (25.0-50.0) % [place] % (Auto) (2.0-11.0) % Eos % (Auto) (0.0-4.0) % Baso % (Auto) (0.2-1.2) % Sodium 133 L (136-145) mmol/L Potassium 3.5 (3.5-5.1) mmol/L Chloride 99 (98-107) mmol/L Carbon Dioxide 27 (21-32) mmol/L Anion Gap 10.5 (10-20) mmol/L BUN 29 H (7-18) mg/dL Creatinine 2.1 H (0.70-1.30) mg/dL Est Cr Clr Drug Dosing 26.00 mL/min Estimated GFR (MDRD) 30 Glucose 101 (74-106) mg/dL Calcium 8.3 L (8.5-10.1) mg/dL C-Reactive Protein 6.2 H (<=0.9) mg/dL Procalcitonin ng/mL Blood Type Gel Antibody Screen Tejinder Results Last 24 Hours: Microbiology 10/03/20 20:13 Aerobic Blood Culture - Preliminary Blood - Venous Escherichia Coli Gram Negative Rods#2 Anaerobic Blood Culture - Preliminary NO GROWTH AFTER 2 DAYS 10/03/20 20:18 Aerobic Blood Culture - Preliminary Blood - Venous - Lab Draw NO GROWTH AFTER 2 DAYS Anaerobic Blood Culture - Preliminary NO GROWTH AFTER 2 DAYS 10/03/20 20:45 Urine Culture - Final Urine, Voided Escherichia Coli Escherichia Coli#2 10/04/20 10:30 MRSA Surveillance Culture - Final Nasal, Unspecified NO MRSA ISOLATED Med Orders - Current: Current Medications Acetaminophen (Tylenol) 650 mg PO Q4H PRN PRN Reason: Pain Last Admin: 10/06/20 05:38 Dose: 650 mg Documented by: Albuterol/Ipratropium (Duoneb 3.0-0.5 Mg/3 Ml) 3 ml INH Q6HRRT [facility] Last Admin: 10/06/20 06:05 Dose: Not Given Documented by: Apixaban (Eliquis) 2.5 mg PO BID [facility] Last Admin: 10/06/20 08:41 Dose: 2.5 mg Documented by: Artificial Tears (Genteal Mild To Moderate Ophth Soln) 0 ml EYEBOTH QID PRN PRN Reason: Dryness Aspirin (Halfprin) 81 mg PO DAILY [facility] Last Admin: 10/06/20 08:41 Dose: 81 mg Documented by: Atenolol (Tenormin) 50 mg PO DAILY [facility] Last Admin: 10/06/20 08:42 Dose: 50 mg Documented by: Azithromycin (Zithromax) 500 mg PO Q24H [facility] Stop: 10/09/20 22:01 Last Admin: 10/05/20 21:09 Dose: 500 mg Documented by: Benzocaine/Menthol (Cepacol Sore Throat) 1 lozenge MUCMEM Q2HR PRN PRN Reason: Sore Throat Last Admin: 10/06/20 08:57 Dose: 1 lozenge Documented by: Budesonide (Pulmicort) 0.5 mg INH BIDRT [facility] Last Admin: 10/06/20 06:05 Dose: Not Given Documented by: Calcium Carbonate/Glycine (Tums Extra Strength) 750 mg PO QID PRN PRN Reason: GI Distress Ceftriaxone Sodium (Rocephin) 1 gm IVPUSH Q24H [facility] Last Admin: 10/05/20 19:24 Dose: 1 gm Documented by: Cholecalciferol (Vitamin D3) 25 mcg PO DAILY [facility] Last Admin: 10/06/20 08:41 Dose: 25 mcg Documented by: Citalopram Hydrobromide (Celexa) 30 mg PO DAILY [facility] Last Admin: 10/06/20 08:41 Dose: 30 mg Documented by: Finasteride (Proscar) 5 mg PO DAILY [facility] Last Admin: 10/06/20 08:38 Dose: 5 mg Documented by: Guaifenesin (Mucinex) 600 mg PO Q12HR PRN PRN Reason: for excess mucus secretions Last Admin: 10/03/20 22:54 Dose: 600 mg Documented by: Multivitamins/Minerals (Prosight) 1 tab PO BID [facility] Last Admin: 10/06/20 08:41 Dose: 1 tab Documented by: Nifedipine (Procardia Xl) 30 mg PO DAILY [facility] Last Admin: 10/06/20 08:42 Dose: 30 mg Documented by: Ondansetron HCl (Zofran Odt) 4 mg PO Q4H PRN PRN Reason: Nausea/Vomiting Last Admin: 10/04/20 18:24 Dose: 4 mg Documented by: Polyethylene Glycol (Miralax) 17 gm PO DAILY PRN PRN Reason: Constipation Prednisone (Prednisone) 40 mg PO WITHBREAKFAST [facility] Last Admin: 10/06/20 08:41 Dose: 40 mg Documented by: Simvastatin (Zocor) 10 mg PO DAILY [facility] Last Admin: 10/06/20 08:41 Dose: 10 mg Documented by: Sodium Bicarbonate (Sodium Bicarbonate) 650 mg PO BID [facility] Last Admin: 10/06/20 08:41 Dose: 650 mg Documented by: Discontinued Medications Acetaminophen (Tylenol Extra Strength) 1,000 mg PO ONETIME ONE Stop: 10/03/20 21:01 Last Admin: 10/03/20 21:15 Dose: 1,000 mg Documented by: Acetaminophen (Tylenol) 325 mg PO Q4H PRN PRN Reason: Pain Ceftriaxone Sodium (Rocephin) 1 gm IVPUSH STAT ONE Stop: 10/03/20 20:07 Last Admin: 10/03/20 20:16 Dose: 1 gm Documented by: Citalopram Hydrobromide (Celexa) 40 mg PO DAILY [facility] Last Admin: 10/04/20 08:23 Dose: 40 mg Documented by: Lactated Ringer's (Ringers, Lactated) 1,000 mls @ 125 mls/hr IV ONETIME ONE Stop: 10/04/20 04:05 Last Admin: 10/03/20 20:18 Dose: 125 mls/hr Documented by: Azithromycin 500 mg/ Sodium (Chloride) 250 mls @ 250 mls/hr IV STAT ONE Stop: 10/03/20 21:05 Last Admin: 10/03/20 20:34 Dose: 250 mls/hr Documented by: Lactated Ringer's (Ringers, Lactated) 1,000 mls @ 50 mls/hr IV ASDIRECTED [facility] Last Admin: 10/04/20 17:11 Dose: 50 mls/hr Documented by: Methylprednisolone Sodium Succinate (Solu-Medrol) 125 mg IVPUSH ONETIME ONE Stop: 10/03/20 20:21 Last Admin: 10/03/20 20:28 Dose: 125 mg Documented by: - Exam Quality Assessment: Supplemental Oxygen General: Alert, Oriented HEENT: Pupils Equal Lungs: Normal Respiratory Effort, Wheezing, Other (2L supplemental O2) Cardiovascular: Regular Rate, Regular Rhythm GI/Abdominal Exam: Normal Bowel Sounds, Soft, Non-Tender Extremities: Normal Inspection, Non-Tender, No Pedal Edema Skin: Warm, Dry, Intact Psy/Mental Status: Alert, Normal Affect, Normal Mood Sepsis Event Note - Evaluation Sepsis Screening Result: No Definite Risk - Focused Exam Vital Signs: Vital Signs Temp Temp Pulse Pulse Resp BP BP 10/06/20 10:00 99.2 F 77 18 103/43 L 10/06/20 08:48 10/06/20 08:42 82 107/53 L 10/06/20 06:08 100 F 10/06/20 06:00 100.5 F 88 19 100/25 L 10/06/20 05:38 100.5 F 10/06/20 02:00 98.6 F 78 121/42 L Pulse Ox Pulse Ox 10/06/20 10:00 91 L 10/06/20 08:48 93 L 10/06/20 08:42 10/06/20 06:08 10/06/20 06:00 93 L 10/06/20 05:38 10/06/20 02:00 - Problem List & Annotations (1) Bacteremia SNOMED Code(s): 5267583 Code(s): R78.81 - BACTEREMIA Status: Acute Current Visit: Yes (2) UTI, Urinary tract infectious disease SNOMED Code(s): 38974151 Code(s): N39.0 - URINARY TRACT INFECTION, SITE NOT SPECIFIED Status: Acute Current Visit: Yes (3) COPD (chronic obstructive pulmonary disease) SNOMED Code(s): 26176544 Code(s): J44.9 - CHRONIC OBSTRUCTIVE PULMONARY DISEASE, UNSPECIFIED Status: Chronic Current Visit: No (4) Hyponatremia SNOMED Code(s): 93087552 Code(s): E87.1 - HYPO-OSMOLALITY AND HYPONATREMIA Status: Acute Current Visit: Yes - Problem List Review Problem List Initiated/Reviewed/Updated: Yes - Plan Plan:: #Urosepsis #UTI - Patient grew gram-negative rods in both his urine and blood - Has been treated with IV Rocephin and Zithromax with plans to finish this on 10/09/2020 - Did have a fever of 100.5 early this morning Plan: - Continue antibiotics as previously ordered - Monitor vitals - Repeat CBC in the am #COPD with acute exacerbation - Patient back to baseline of 2L of supplemental O2 - Continues to have some mild wheezing - Currently on prednisone 40mg daily Plan: - Will try to decrease prednisone to 20mg daily today - Continue scheduled neb treatments as per [place] [facility] orders. #Hyponatremia - IVF cut yesterday, now has mild hyponatremia with na of 133 today Plan: - Recheck BMP in the am Chronic: Anemia Chronic renal failure BPH Depression A-fib Hypertension Hyperlipidemia Constipation Depression and anxiety - Continue home medications. Disposition: Plan to continue IV antibiotics and recheck labs in the morning. Decreasing the prednisone down to 20 mg daily. At this point it is likely that patient will remain in the hospital until Thursday and at that point pending medical stability will likely be able to discharge back to [facility].
[2020-10-06] MEDS: Ondansetron 4 MG Tab.DIS PO PRN (11:58)
[2020-10-06] MEDS: Calcium Carbonate 750 MG Tab.Chew PO PRN (12:29)
[2020-10-06] MEDS: cefTRIAXone 1 GM Vial IVPUSH SCH (20:31)
[2020-10-06] MEDS: Azithromycin 250 MG Tab PO SCH (21:35)
[2020-10-07] MEDS: Albuterol/Ipratropium 3.0-0.5 MG/3 ML Neb Soln INH SCH ×4 (00:14→18:04)
[2020-10-07] MEDS: Budesonide 0.5 MG/2 ML Neb Susp INH SCH ×2 (06:39→20:07)
[2020-10-07] MEDS: Citalopram 10 MG Tab PO SCH (08:09)
[2020-10-07] MEDS: Simvastatin 10 MG Tab PO SCH (08:10)
[2020-10-07] MEDS: NIFEdipine 30 MG Tab.ER PO SCH (08:10)
[2020-10-07] MEDS: Beta-Carotene (Vitamin A) w/Vitamin C & E plus Minerals Tab PO SCH ×2 (08:10→20:07)
[2020-10-07] MEDS: predniSONE 20 MG Tab PO SCH (08:10)
[2020-10-07] MEDS: Sodium Bicarbonate 650 MG Tab PO SCH ×2 (08:10→20:07)
[2020-10-07] MEDS: Finasteride 5 MG Tab PO SCH (08:10)
[2020-10-07] MEDS: Cholecalciferol (Vitamin D3) 25 MCG Tab PO SCH (08:10)
[2020-10-07] MEDS: Aspirin 81 MG Tab.EC PO SCH (08:10)
[2020-10-07] MEDS: Apixaban 2.5 MG Tab PO SCH ×2 (08:10→20:06)
[2020-10-07] MEDS: Atenolol 50 MG Tab PO SCH (08:10)
[2020-10-07 08:26] LABS: ANION GAP 9.7 mmol/L (10-20)
[2020-10-07] MEDS: Benzocaine/Cetylpyridinium/Menthol Lozenge MUCMEM PRN ×3 (09:39→20:18)
--- NOTE | 2020-10-07 10:27 | PCM.PN ---
- General Info Date of Service: 10/07/20 Admission Dx/Problem (Free Text): Admission Diagnosis/Problem Admission Diagnosis/Problem Pneumonia Subjective Update: Hoang is an 80-year-old male, resident of [facility], who was admitted on 10/03/2024 with suspected pneumonia secondary to covid-19. Lab work was revealing of a urosepsis picture instead and patient's respiratory symptoms were thought to just be exacerbation of his COPD. Patient has been on IV antibiotics: Rocephin and Zosyn with plans to continue these through 10/09/2020. No acute overnight events. patient is feeling well this morning. Continues on 2L of supplemental O2. Fever free for 24 hours now. Eating, voiding well. Some nausea and bloating (resolved with SL Zofran), maybe secondary to antibiotics. Patient excited for anticipated discharge back to [facility] tomorrow. - Patient Data Vitals - Most Recent: Last Vital Signs Temp 97.4 F 10/07/20 06:57 Pulse 72 10/07/20 08:10 Resp 18 10/07/20 06:57 BP 132/62 10/07/20 08:10 Pulse Ox 92 L 10/07/20 08:00 Weight - Most Recent: 147 lb 6.4 oz I&O - Last 24 Hours: Intake & Output 10/06/20 10/07/20 10/07/20 22:59 06:59 14:59 Intake Total 120 800 Balance 120 800 Lab Results Last 24 Hours: Laboratory Results - last 24 hr 10/03/20 10/06/20 10/07/20 Range/Units 20:13 07:29 07:52 WBC 5.4 (4.0-10.0) x10^3/uL RBC 2.70 L (4.5-6.0) x10^6/uL Hgb 7.8 L (14.0-18.0) g/dL Hct 25.6 L (40.0-52.0) % MCV 94.8 H (78.0-93.0) fL MCH 28.9 (26.0-32.0) pg MCHC 30.5 L (32.0-36.0) g/dL RDW Coeff of Anthony 12.8 (10.0-15.0) % Plt Count 277 (130-400) x10^3/uL Neutrophils % (Manual) 80 (50-80) % Band Neutrophils % 1 (0-6) % Lymphocytes % (Manual) 13 L (25-50) % Monocytes % (Manual) 5 (2-11) % Eosinophils % (Manual) 1 (0-4) % Platelet Estimate Adequate Hypochromasia 2+ moderate H Anisocytosis 1+ slight H Sodium (136-145) mmol/L Potassium (3.5-5.1) mmol/L Chloride (98-107) mmol/L Carbon Dioxide (21-32) mmol/L Anion Gap (10-20) mmol/L BUN (7-18) mg/dL Creatinine (0.70-1.30) mg/dL Est Cr Clr Drug Dosing mL/min Estimated GFR (MDRD) Glucose (74-106) mg/dL Calcium (8.5-10.1) mg/dL Procalcitonin 0.12 H ng/mL Gel Antibody Screen Negative 10/07/20 Range/Units 07:52 WBC (4.0-10.0) x10^3/uL RBC (4.5-6.0) x10^6/uL Hgb (14.0-18.0) g/dL Hct (40.0-52.0) % MCV (78.0-93.0) fL MCH (26.0-32.0) pg MCHC (32.0-36.0) g/dL RDW Coeff of Anthony (10.0-15.0) % Plt Count (130-400) x10^3/uL Neutrophils % (Manual) (50-80) % Band Neutrophils % (0-6) % Lymphocytes % (Manual) (25-50) % Monocytes % (Manual) (2-11) % Eosinophils % (Manual) (0-4) % Platelet Estimate Hypochromasia Anisocytosis Sodium 137 (136-145) mmol/L Potassium 3.7 (3.5-5.1) mmol/L Chloride 101 (98-107) mmol/L Carbon Dioxide 30 (21-32) mmol/L Anion Gap 9.7 L (10-20) mmol/L BUN 26 H (7-18) mg/dL Creatinine 2.1 H (0.70-1.30) mg/dL Est Cr Clr Drug Dosing 25.65 mL/min Estimated GFR (MDRD) 30 Glucose 133 H (74-106) mg/dL Calcium 8.9 (8.5-10.1) mg/dL Procalcitonin ng/mL Gel Antibody Screen Tejinder Results Last 24 Hours: Microbiology 10/03/20 20:18 Aerobic Blood Culture - Preliminary Blood - Venous - Lab Draw NO GROWTH AFTER 3 DAYS Anaerobic Blood Culture - Preliminary NO GROWTH AFTER 3 DAYS 10/03/20 20:13 Aerobic Blood Culture - Preliminary Blood - Venous Escherichia Coli Gram Negative Rods#2 Anaerobic Blood Culture - Preliminary NO GROWTH AFTER 3 DAYS Med Orders - Current: Current Medications Acetaminophen (Tylenol) 650 mg PO Q4H PRN PRN Reason: Pain Last Admin: 10/06/20 05:38 Dose: 650 mg Documented by: Albuterol/Ipratropium (Duoneb 3.0-0.5 Mg/3 Ml) 3 ml INH Q6HRRT [facility] Last Admin: 10/07/20 06:39 Dose: 3 ml Documented by: Apixaban (Eliquis) 2.5 mg PO BID [facility] Last Admin: 10/07/20 08:10 Dose: 2.5 mg Documented by: Artificial Tears (Genteal Mild To Moderate Ophth Soln) 0 ml EYEBOTH QID PRN PRN Reason: Dryness Aspirin (Halfprin) 81 mg PO DAILY [facility] Last Admin: 10/07/20 08:10 Dose: 81 mg Documented by: Atenolol (Tenormin) 50 mg PO DAILY [facility] Last Admin: 10/07/20 08:10 Dose: 50 mg Documented by: Azithromycin (Zithromax) 500 mg PO Q24H [facility] Stop: 10/09/20 22:01 Last Admin: 10/06/20 21:35 Dose: 500 mg Documented by: Benzocaine/Menthol (Cepacol Sore Throat) 1 lozenge MUCMEM Q2HR PRN PRN Reason: Sore Throat Last Admin: 10/07/20 09:39 Dose: 1 lozenge Documented by: Budesonide (Pulmicort) 0.5 mg INH BIDRT [facility] Last Admin: 10/07/20 06:39 Dose: 0.5 mg Documented by: Calcium Carbonate/Glycine (Tums Extra Strength) 750 mg PO QID PRN PRN Reason: GI Distress Last Admin: 10/06/20 12:29 Dose: 750 mg Documented by: Ceftriaxone Sodium (Rocephin) 1 gm IVPUSH Q24H [facility] Last Admin: 10/06/20 20:31 Dose: 1 gm Documented by: Cholecalciferol (Vitamin D3) 25 mcg PO DAILY [facility] Last Admin: 10/07/20 08:10 Dose: 25 mcg Documented by: Citalopram Hydrobromide (Celexa) 30 mg PO DAILY [facility] Last Admin: 10/07/20 08:09 Dose: 30 mg Documented by: Finasteride (Proscar) 5 mg PO DAILY [facility] Last Admin: 10/07/20 08:10 Dose: 5 mg Documented by: Guaifenesin (Mucinex) 600 mg PO Q12HR PRN PRN Reason: for excess mucus secretions Last Admin: 10/03/20 22:54 Dose: 600 mg Documented by: Multivitamins/Minerals (Prosight) 1 tab PO BID [facility] Last Admin: 10/07/20 08:10 Dose: 1 tab Documented by: Nifedipine (Procardia Xl) 30 mg PO DAILY [facility] Last Admin: 10/07/20 08:10 Dose: 30 mg Documented by: Ondansetron HCl (Zofran Odt) 4 mg PO Q4H PRN PRN Reason: Nausea/Vomiting Last Admin: 10/06/20 11:58 Dose: 4 mg Documented by: Polyethylene Glycol (Miralax) 17 gm PO DAILY PRN PRN Reason: Constipation Prednisone (Prednisone) 20 mg PO WITHBREAKFAST [facility] Last Admin: 10/07/20 08:10 Dose: 20 mg Documented by: Simvastatin (Zocor) 10 mg PO DAILY [facility] Last Admin: 10/07/20 08:10 Dose: 10 mg Documented by: Sodium Bicarbonate (Sodium Bicarbonate) 650 mg PO BID [facility] Last Admin: 10/07/20 08:10 Dose: 650 mg Documented by: Discontinued Medications Acetaminophen (Tylenol Extra Strength) 1,000 mg PO ONETIME ONE Stop: 10/03/20 21:01 Last Admin: 10/03/20 21:15 Dose: 1,000 mg Documented by: Acetaminophen (Tylenol) 325 mg PO Q4H PRN PRN Reason: Pain Ceftriaxone Sodium (Rocephin) 1 gm IVPUSH STAT ONE Stop: 10/03/20 20:07 Last Admin: 10/03/20 20:16 Dose: 1 gm Documented by: Citalopram Hydrobromide (Celexa) 40 mg PO DAILY [facility] Last Admin: 10/04/20 08:23 Dose: 40 mg Documented by: Lactated Ringer's (Ringers, Lactated) 1,000 mls @ 125 mls/hr IV ONETIME ONE Stop: 10/04/20 04:05 Last Admin: 10/03/20 20:18 Dose: 125 mls/hr Documented by: Azithromycin 500 mg/ Sodium (Chloride) 250 mls @ 250 mls/hr IV STAT ONE Stop: 10/03/20 21:05 Last Admin: 10/03/20 20:34 Dose: 250 mls/hr Documented by: Lactated Ringer's (Ringers, Lactated) 1,000 mls @ 50 mls/hr IV ASDIRECTED [facility] Last Admin: 10/04/20 17:11 Dose: 50 mls/hr Documented by: Methylprednisolone Sodium Succinate (Solu-Medrol) 125 mg IVPUSH ONETIME ONE Stop: 10/03/20 20:21 Last Admin: 10/03/20 20:28 Dose: 125 mg Documented by: Prednisone (Prednisone) 40 mg PO WITHBREAKFAST [facility] Last Admin: 10/06/20 08:41 Dose: 40 mg Documented by: - Exam Quality Assessment: Supplemental Oxygen (2L) General: Alert, Oriented Neck: Supple Lungs: Wheezing (mild wheezing in the bases) Cardiovascular: Regular Rate, Regular Rhythm GI/Abdominal Exam: Normal Bowel Sounds, Soft, Non-Tender, No Distention Extremities: Non-Tender, No Pedal Edema Skin: Warm, Dry Psy/Mental Status: Alert, Normal Affect, Normal Mood Sepsis Event Note - Evaluation Sepsis Screening Result: No Definite Risk - Focused Exam Vital Signs: Vital Signs Temp Pulse Pulse Resp BP BP Pulse Ox 10/07/20 08:10 72 132/62 10/07/20 08:00 10/07/20 06:57 97.4 F 72 18 132/62 92 L 10/07/20 02:00 97.8 F 78 17 128/51 L 99 Pulse Ox 10/07/20 08:10 10/07/20 08:00 92 L 10/07/20 06:57 10/07/20 02:00 - Problem List & Annotations (1) Bacteremia SNOMED Code(s): 8956631 Code(s): R78.81 - BACTEREMIA Status: Acute Current Visit: Yes (2) UTI, Urinary tract infectious disease SNOMED Code(s): 22705017 Code(s): N39.0 - URINARY TRACT INFECTION, SITE NOT SPECIFIED Status: Acute Current Visit: Yes (3) COPD (chronic obstructive pulmonary disease) SNOMED Code(s): 02522146 Code(s): J44.9 - CHRONIC OBSTRUCTIVE PULMONARY DISEASE, UNSPECIFIED Status: Chronic Current Visit: No (4) Hyponatremia SNOMED Code(s): 41889250 Code(s): E87.1 - HYPO-OSMOLALITY AND HYPONATREMIA Status: Acute Current Visit: Yes - Problem List Review Problem List Initiated/Reviewed/Updated: Yes - My Orders Last 24 Hours: My Active Orders 10/07/20 08:00 predniSONE 20 mg PO WITHBREAKFAST - Plan Plan:: #Urosepsis #UTI - Patient grew gram-negative rods in both his urine and blood - Has been treated with IV Rocephin and Zithromax with plans to finish this on 10/09/2020 - Fever free last 24hr, CBC stable Plan: - Continue antibiotics as previously ordered, set to finish 10/09/20 - Monitor vitals #COPD with acute exacerbation - Patient remains on baseline of 2L of supplemental O2 - Continues to have some mild wheezing - Currently on prednisone 20mg daily Plan: - Continue Prednisone 20mg daily - Continue scheduled neb treatments as per skilled nursing orders. #Hyponatremia - resolved - Mild decrease in Na with cutting of fluids on 10/05, improved today Chronic: Anemia Chronic renal failure BPH Depression A-fib Hypertension Hyperlipidemia Constipation Depression and anxiety - Continue home medications. Disposition: Plan to continue IV antibiotics and steroid. Anticipate discharge back to [facility] on 10/09/20.
[2020-10-07] MEDS: Calcium Carbonate 750 MG Tab.Chew PO PRN (13:03)
[2020-10-07] MEDS: Ondansetron 4 MG Tab.DIS PO PRN (17:14)
[2020-10-07] MEDS: cefTRIAXone 1 GM Vial IVPUSH SCH (20:07)
[2020-10-07] MEDS: Azithromycin 250 MG Tab PO SCH (21:34)
[2020-10-08] MEDS: Albuterol/Ipratropium 3.0-0.5 MG/3 ML Neb Soln INH SCH ×2 (00:33→07:19)
[2020-10-08] MEDS: Calcium Carbonate 750 MG Tab.Chew PO PRN (01:40)
[2020-10-08] MEDS: Budesonide 0.5 MG/2 ML Neb Susp INH SCH (07:19)
[2020-10-08] MEDS: Citalopram 10 MG Tab PO SCH (07:43)
[2020-10-08] MEDS: Atenolol 50 MG Tab PO SCH (07:43)
[2020-10-08] MEDS: Sodium Bicarbonate 650 MG Tab PO SCH (07:43)
[2020-10-08] MEDS: Aspirin 81 MG Tab.EC PO SCH (07:43)
[2020-10-08] MEDS: Simvastatin 10 MG Tab PO SCH (07:43)
[2020-10-08] MEDS: predniSONE 20 MG Tab PO SCH (07:43)
[2020-10-08] MEDS: Finasteride 5 MG Tab PO SCH (07:43)
[2020-10-08] MEDS: Beta-Carotene (Vitamin A) w/Vitamin C & E plus Minerals Tab PO SCH (07:43)
[2020-10-08] MEDS: Cholecalciferol (Vitamin D3) 25 MCG Tab PO SCH (07:43)
[2020-10-08] MEDS: NIFEdipine 30 MG Tab.ER PO SCH (07:43)
[2020-10-08 07:44] VITALS: BP 128/60; PULSE 85
[2020-10-08] MEDS: Apixaban 2.5 MG Tab PO SCH (07:44)
[2020-10-08] MEDS ORDERED: Levofloxacin 250 MG Tab PO SCH (08:45)
--- NOTE | 2020-10-08 08:58 | PN ---
Progress Note for ZACHARY JIMENEZ Date: 10/08/2020 Room #: VM.216 SUBJECTIVE: The patient is feeling much better today. He feels he is able to go back to the [facility]. He is not coughing. He has otherwise not had a fever over the last 2 days. The patient otherwise has no other concerns. He has gotten stronger. OBJECTIVE: Vital Signs: His weight is 66.6 kg which is up from admission, but stable for the past few days. His blood pressure is 128/60, pulse is 85, saturations are 95% on oxygen. General: He is alert, pleasant to visit with. Heart: Regular rate and rhythm. Lungs: Have diminished breath sounds. Rare wheezes. Abdomen: Soft. LABORATORY DATA: No lab work has been done since 10/07 which showed his hemoglobin was stable at 7.8. His blood cultures were showing Escherichia coli. IMPRESSION: 1. Urosepsis. 2. Exacerbation of chronic obstructive pulmonary disease. 3. Hyponatremia. PLAN: The patient will be sent back to [facility] today. We will stop his IV Rocephin. He has gotten Zithromax. We will place him on Augmentin for 5 more days. His prednisone will be tapered. GM10/08/2020 08:30:38 MODL: 10/08/2020 08:40:18 /[id number]
--- NOTE | 2020-10-08 10:08 | DISCH ---
PRIMARY DIAGNOSES: 1. Urosepsis. 2. Exacerbation of chronic obstructive pulmonary disease. 3. Acute kidney failure. 4. Confusion. 5. Chronic obstructive pulmonary disease. 6. Recent coronavirus infection. 7. Chronic kidney disease stage 3B. 8. Confusion, improved. SUMMARY OF ADMIT HISTORY AND PHYSICAL: The patient presented to the emergency room with acute confusion. He was noted to be requiring more oxygen. He was depressed. He had a recent COVID infection on 09/03/2020, but never had symptoms with it. He is on chronic oxygen with COPD and nebs. The patient also has known chronic kidney disease. He has not been eating well the past few days. When he presented to the emergency room, he was noted to be needing more oxygen. He needed 5 L to get the sats over 95%. His vital signs on presentation to the emergency room show temperature 98.6, pulse 87, respirations 22, blood pressure 120/54, sats 94%. White blood cell count 8.3, hemoglobin 8.7, platelets 328 with 77 segs, 10 lymphs, 9 monos. Sodium 136, potassium 4.6, creatinine 2.5, GFR 25, glucose 116, lactic acid 1.4. LFTs normal. Troponin less than 0.017. CRP 9.5. ProBNP 1256. Venous blood gases showed pH 7.32, venous pCO2 of 51, venous pO2 of 51, venous bicarb 26, sats are 83%. Urinalysis had moderate leukocyte esterase, 20-30 white blood cells, moderate sedimentation. The patient was given a DuoNeb in the emergency room. Chest x- ray showed faint bilateral interstitial pattern. SUMMARY OF HOSPITAL COURSE: The patient was admitted to acute care. Given IV Rocephin, Zithromax, Solu-Medrol 125 x1 dose, and IV fluids judiciously given. To note, his temperature did spike to 102.4 within 8 hours of admission. His lab summary showed that his white blood cell count stayed normal the entire time. His hemoglobin did lower down to 7.3, somewhat was delusional, but never lower than that. His creatinine had improved up to 2.0. His lactic acid was 1.3 in 4 hours. His CRP went up to 10.3, then down to 6.2. ProBNP went up to 4394. The patient improved with fever and getting better. He was kept on Solu- Medrol and then weaned to oral prednisone. He was on Zithromax and Rocephin. At the day of discharge, he was going to be placed on Levaquin 250 mg daily for 5 days as well as the Zithromax can stop. His prednisone will be 20 mg daily for 3 days, then 10 mg daily for 3 days, then stop. His citalopram was reduced to 30 mg daily due to renal function and age. Otherwise, the remainder of his medications will be what he came in on, which will be multivitamin 1 pill daily. , aspirin 81 mg 1 pill daily, ProAir 2 puffs q.4 hours p.r.n., simvastatin 10 mg daily, atenolol 50 mg daily, Pulmicort 0.5 nebs b.i.d., Avodart 0.5 mg daily, MiraLAX 17 g daily p.r.n., DuoNebs q.6 hours, Eliquis 2.5 mg b.i.d., Tylenol 650 q.4 hours p.r.n., nifedipine 30 mg daily, guaifenesin 600 mg q.12 hours p.r.n., sodium bicarb 650 tab b.i.d., calcium carbonate 200 mg 2 pills 4 times a day as needed, vitamin D3, 25 mcg 1 pill daily, Artificial Tears 1 drop q.i.d. p.r.n., eye vitamins 2 capsules twice a day, prednisone 20 mg a day for 3 days, then 10 mg a day for 3 days, then stop. As you know, in a week's time, the patient will need to have a CBC done for anemia as well as a basic metabolic profile for chronic kidney disease. The patient will have PT/OT for strengthening. The patient's code level status at the time of discharge is full code. GM10/08/2020 08:48:18 MODL: 10/08/2020 10:02:13 /[id number] MURRAY
[2020-10-08] MEDS ORDERED: Amoxicillin/Clavulanate K 875-125 MG Tab PO SCH (20:00)
[2020-10-10] MEDS ORDERED: predniSONE 10 MG Tab PO SCH (08:00)
== END 2020-10-08 10:10 | DRG 193 ==
LOC: VM.ED 19:44 → VM.MS 21:10 → UNDODISIN 10-08 10:10
PROVIDERS: ADMIT Nurse Practitioner Family; ATTEND Family Medicine
DX: J18.9 Pneumonia, unspecified organism (principal); J96.21 Acute and chronic respiratory failure with hypoxia; J44.1 Chronic obstructive pulmonary disease with (acute) exacerbation; N17.9 Acute kidney failure, unspecified; N18.4 Chronic kidney disease, stage 4 (severe); D64.9 Anemia, unspecified; Z88.0 Allergy status to penicillin; Z88.8 Allergy status to other drugs, medicaments and biological substances; N39.0 Urinary tract infection, site not specified; Z79.82 Long term (current) use of aspirin; Z99.81 Dependence on supplemental oxygen; Z79.51 Long term (current) use of inhaled steroids; Z79.899 Other long term (current) drug therapy; J44.0 Chronic obstructive pulmonary disease with (acute) lower respiratory infection; R78.81 Bacteremia; E87.1 Hypo-osmolality and hyponatremia; I12.9 Hypertensive chronic kidney disease with stage 1 through stage 4 chronic kidney disease, or unspecified chronic kidney disease; N18.32 Chronic kidney disease, stage 3b; E78.5 Hyperlipidemia, unspecified; F32.9 Major depressive disorder, single episode, unspecified; F41.9 Anxiety disorder, unspecified; D63.1 Anemia in chronic kidney disease; N40.0 Benign prostatic hyperplasia without lower urinary tract symptoms; K59.00 Constipation, unspecified; M19.90 Unspecified osteoarthritis, unspecified site; Z90.89 Acquired absence of other organs; Z90.79 Acquired absence of other genital organ(s); I48.91 Unspecified atrial fibrillation; Z79.01 Long term (current) use of anticoagulants; Z66 Do not resuscitate; B96.20 Unspecified Escherichia coli [E. coli] as the cause of diseases classified elsewhere
CPT/HCPCS: 36415; 71045; 80053; 81001; 82803; 83605; 83880; 84145; 84484; 85025; 86140; 87040 ×2; 87077 ×2; 87086; 87088 ×2; 87186 ×4; 93005; 93010; 96365; 96375; 99284; 99285; J0456; J0696; J2930; J7050; J7120; 71046; 80048; 85007; 85027; 86850; 86900; 86901; 87804; 87804-59; 94640; 94760; A9270-GY; J7512; J7620-GY

== ENCOUNTER 2022-09-01 17:47 | Inpatient (IN) | payer MEDICARE, OTHER, MEDICAID ==
[2022-09-01] MEDS ORDERED: cefTRIAXone 2 GM Vial IV ONE (17:57)
[2022-09-01] MEDS ORDERED: Sodium Chloride 0.9% 10 ML Syringe FLUSH PRN (17:57)
[2022-09-01] MEDS ORDERED: Albuterol/Ipratropium 3.0-0.5 MG/3 ML Neb Soln NEB ONE (17:59)
[2022-09-01 18:45] LABS: CHLORIDE,CL 101 mmol/L (98-107); SODIUM,NA 136 mmol/L (136-145)
[2022-09-01 18:46] LABS: ANION GAP 10.9 mmol/L (5-15); ESTIMATED GFR 27 mL/min (>=60)
[2022-09-01] MEDS ORDERED: Furosemide 40 MG/4 ML VIAL IV ONE (19:09)
[2022-09-01] MEDS ORDERED: Acetaminophen 325 MG Tab PO PRN ×2 (21:39→21:44)
[2022-09-01] MEDS ORDERED: Ondansetron 4 MG Tab.DIS PO PRN ×2 (21:39→21:44)
[2022-09-01] MEDS ORDERED: Sennosides 8.6 MG Tab PO PRN (21:44)
[2022-09-01] MEDS ORDERED: Bisacodyl 5 MG Tab PO PRN (21:44)
[2022-09-01] MEDS ORDERED: Calcium Carbonate 750 MG Tab.Chew PO PRN (21:44)
[2022-09-01] MEDS ORDERED: guaiFENesin/Dextromethorphan 100-10 MG/5 ML Soln 10 ML Cup PO PRN (21:44)
[2022-09-01] MEDS ORDERED: Lidocaine 2% HCl 11 ML Jelly Filled Syringe MUCMEM ONE (21:55)
[2022-09-01] MEDS: Apixaban 2.5 MG Tab PO SCH (22:39)
[2022-09-01] MEDS: Budesonide 0.5 MG/2 ML Neb Susp INH SCH (22:39)
[2022-09-02] MEDS ORDERED: Albuterol 0.083% 2.5 MG/3 ML Neb Soln ONE (00:09)
[2022-09-02] MEDS ORDERED: Albuterol 0.083% 2.5 MG/3 ML Neb Soln NEB PRN (01:06)
[2022-09-02] MEDS: Omeprazole 20 MG Cap.CR PO SCH (06:20)
[2022-09-02] MEDS: Albuterol/Ipratropium 3.0-0.5 MG/3 ML Neb Soln NEB SCH ×4 (06:24→20:23)
[2022-09-02] MEDS: Budesonide 0.5 MG/2 ML Neb Susp INH SCH ×2 (07:33→20:23)
[2022-09-02 07:54] LABS: CHLORIDE,CL 99 mmol/L (98-107); ESTIMATED GFR 24 mL/min (>=60); SODIUM,NA 136 mmol/L (136-145)
[2022-09-02] MEDS: Citalopram 20 MG Tab PO SCH (08:53)
[2022-09-02] MEDS: Finasteride 5 MG Tab PO SCH (08:54)
[2022-09-02] MEDS: predniSONE 5 MG Tab PO SCH (08:54)
[2022-09-02] MEDS: Loratadine 10 MG Tab PO SCH (08:54)
[2022-09-02] MEDS: Apixaban 2.5 MG Tab PO SCH ×2 (08:54→20:24)
[2022-09-02] MEDS: Multivitamins with Iron/Calcium/Folic Acid/Minerals Tab PO SCH (08:54)
[2022-09-02] MEDS: Ferrous Sulfate 325 MG Tab PO SCH (08:54)
[2022-09-02] MEDS: Sodium Bicarbonate 650 MG Tab PO SCH ×2 (08:54→20:24)
[2022-09-02] MEDS: Cholecalciferol (Vitamin D3) 25 MCG Tab PO SCH (08:54)
[2022-09-02] MEDS: Atenolol 50 MG Tab PO SCH (08:54)
[2022-09-02] MEDS: guaiFENesin 600 MG Tab.ER PO SCH (08:54)
[2022-09-02] MEDS: Aspirin 81 MG Tab.EC PO SCH (08:55)
[2022-09-02] MEDS: Beta-Carotene (Vitamin A) w/Vitamin C & E plus Minerals Tab PO SCH ×2 (08:55→20:23)
[2022-09-02] MEDS: Furosemide 40 MG/4 ML VIAL IV SCH ×2 (08:55→18:05)
[2022-09-02] MEDS: Doxycycline Monohydrate 100 MG Cap PO SCH ×2 (10:39→20:24)
[2022-09-02] MEDS ORDERED: Enoxaparin 30 MG/0.3 ML Syringe SUBCUT SCH (15:00)
[2022-09-02] MEDS ORDERED: cefTRIAXone 2 GM Vial IVPUSH SCH (18:00)
[2022-09-02] MEDS: cefTRIAXone 1 GM Vial IV SCH (18:05)
[2022-09-03] MEDS: Omeprazole 20 MG Cap.CR PO SCH (06:13)
[2022-09-03] MEDS: Sodium Chloride 0.9% 1,000 ML IV SCH ×2 (07:01→16:38)
[2022-09-03] MEDS: Albuterol/Ipratropium 3.0-0.5 MG/3 ML Neb Soln NEB SCH ×4 (07:09→21:05)
[2022-09-03] MEDS: Budesonide 0.5 MG/2 ML Neb Susp INH SCH ×2 (07:10→21:05)
[2022-09-03 07:36] LABS: CHLORIDE,CL 96 mmol/L (98-107); SODIUM,NA 134 mmol/L (136-145)
[2022-09-03 07:42] LABS: ANION GAP 9.4 mmol/L (5-15); ESTIMATED GFR 22 mL/min (>=60)
[2022-09-03] MEDS: Multivitamins with Iron/Calcium/Folic Acid/Minerals Tab PO SCH (08:32)
[2022-09-03] MEDS: Doxycycline Monohydrate 100 MG Cap PO SCH ×2 (08:32→21:04)
[2022-09-03] MEDS: Loratadine 10 MG Tab PO SCH (08:32)
[2022-09-03] MEDS: Beta-Carotene (Vitamin A) w/Vitamin C & E plus Minerals Tab PO SCH ×2 (08:32→21:04)
[2022-09-03] MEDS: Apixaban 2.5 MG Tab PO SCH ×2 (08:32→21:04)
[2022-09-03] MEDS: Ferrous Sulfate 325 MG Tab PO SCH (08:32)
[2022-09-03] MEDS: predniSONE 5 MG Tab PO SCH (08:32)
[2022-09-03] MEDS: Cholecalciferol (Vitamin D3) 25 MCG Tab PO SCH (08:33)
[2022-09-03] MEDS: Atenolol 50 MG Tab PO SCH (08:33)
[2022-09-03] MEDS: guaiFENesin 600 MG Tab.ER PO SCH (08:33)
[2022-09-03] MEDS: Citalopram 20 MG Tab PO SCH (08:34)
[2022-09-03] MEDS: Aspirin 81 MG Tab.EC PO SCH (08:34)
[2022-09-03] MEDS: Sodium Bicarbonate 650 MG Tab PO SCH ×2 (08:34→21:04)
[2022-09-03] MEDS: Finasteride 5 MG Tab PO SCH (08:34)
[2022-09-03] MEDS: Potassium Chloride 10 MEQ Tab.ER PO SCH (09:35)
[2022-09-03] MEDS: Furosemide 20 MG/2 ML VIAL IV SCH ×2 (09:35→16:37)
[2022-09-03] MEDS: methylPREDNISolone Sodium Succinate 125 MG/2 ML SDV IVPUSH SCH ×2 (09:37→21:04)
[2022-09-03] MEDS: cefTRIAXone 1 GM Vial IV SCH (17:59)
[2022-09-04] MEDS: Sodium Chloride 0.9% 1,000 ML IV SCH (02:35)
[2022-09-04] MEDS: Budesonide 0.5 MG/2 ML Neb Susp INH SCH ×2 (07:01→20:33)
[2022-09-04] MEDS: Albuterol/Ipratropium 3.0-0.5 MG/3 ML Neb Soln NEB SCH ×4 (07:01→20:33)
[2022-09-04] MEDS: Omeprazole 20 MG Cap.CR PO SCH (07:33)
[2022-09-04 07:49] LABS: ANION GAP 11.2 mmol/L (5-15)
[2022-09-04] MEDS: methylPREDNISolone Sodium Succinate 125 MG/2 ML SDV IVPUSH SCH ×2 (08:11→20:31)
[2022-09-04] MEDS: Loratadine 10 MG Tab PO SCH (08:15)
[2022-09-04] MEDS: Apixaban 2.5 MG Tab PO SCH ×2 (08:15→20:31)
[2022-09-04] MEDS: predniSONE 5 MG Tab PO SCH (08:15)
[2022-09-04] MEDS: Furosemide 20 MG/2 ML VIAL IV SCH ×2 (08:16→18:20)
[2022-09-04] MEDS: Doxycycline Monohydrate 100 MG Cap PO SCH ×2 (08:16→20:31)
[2022-09-04] MEDS: Beta-Carotene (Vitamin A) w/Vitamin C & E plus Minerals Tab PO SCH ×2 (08:16→20:31)
[2022-09-04] MEDS: Finasteride 5 MG Tab PO SCH (08:16)
[2022-09-04] MEDS: Ferrous Sulfate 325 MG Tab PO SCH (08:17)
[2022-09-04] MEDS: Sodium Bicarbonate 650 MG Tab PO SCH ×2 (08:17→20:31)
[2022-09-04] MEDS: Potassium Chloride 10 MEQ Tab.ER PO SCH ×2 (08:17→18:21)
[2022-09-04] MEDS: Atenolol 50 MG Tab PO SCH (08:17)
[2022-09-04] MEDS: Aspirin 81 MG Tab.EC PO SCH (08:21)
[2022-09-04] MEDS: Cholecalciferol (Vitamin D3) 25 MCG Tab PO SCH (08:21)
[2022-09-04] MEDS: guaiFENesin 600 MG Tab.ER PO SCH (08:21)
[2022-09-04] MEDS: Multivitamins with Iron/Calcium/Folic Acid/Minerals Tab PO SCH (08:21)
[2022-09-04] MEDS: Citalopram 20 MG Tab PO SCH (08:21)
[2022-09-04] MEDS: Magnesium Oxide 400 MG Tab PO SCH (12:10)
[2022-09-04] MEDS: cefTRIAXone 1 GM Vial IV SCH (18:20)
[2022-09-04] MEDS: Hypromellose 0.3% Ophth Soln 15 ML Bottle EYEBOTH PRN (20:36)
[2022-09-05] MEDS: Hypromellose 0.3% Ophth Soln 15 ML Bottle EYEBOTH PRN (04:54)
[2022-09-05] MEDS: Omeprazole 20 MG Cap.CR PO SCH (06:08)
[2022-09-05] MEDS: Albuterol/Ipratropium 3.0-0.5 MG/3 ML Neb Soln NEB SCH ×2 (06:08→11:23)
[2022-09-05] MEDS: Budesonide 0.5 MG/2 ML Neb Susp INH SCH (06:08)
[2022-09-05 07:21] LABS: ANION GAP 11.4 mmol/L (5-15)
[2022-09-05] MEDS: Doxycycline Monohydrate 100 MG Cap PO SCH (08:52)
[2022-09-05] MEDS: guaiFENesin 600 MG Tab.ER PO SCH (08:52)
[2022-09-05] MEDS: Atenolol 50 MG Tab PO SCH (08:53)
[2022-09-05] MEDS: Finasteride 5 MG Tab PO SCH (08:54)
[2022-09-05] MEDS: Beta-Carotene (Vitamin A) w/Vitamin C & E plus Minerals Tab PO SCH (08:54)
[2022-09-05] MEDS: Sodium Bicarbonate 650 MG Tab PO SCH (08:54)
[2022-09-05] MEDS: Magnesium Oxide 400 MG Tab PO SCH (08:54)
[2022-09-05] MEDS: predniSONE 5 MG Tab PO SCH (08:54)
[2022-09-05] MEDS: Loratadine 10 MG Tab PO SCH (08:54)
[2022-09-05] MEDS: Apixaban 2.5 MG Tab PO SCH (08:54)
[2022-09-05] MEDS: Potassium Chloride 10 MEQ Tab.ER PO SCH (08:54)
[2022-09-05] MEDS: Citalopram 20 MG Tab PO SCH (08:55)
[2022-09-05] MEDS: Cholecalciferol (Vitamin D3) 25 MCG Tab PO SCH (08:55)
[2022-09-05] MEDS: Aspirin 81 MG Tab.EC PO SCH (08:55)
[2022-09-05] MEDS: Furosemide 20 MG/2 ML VIAL IV SCH (08:56)
[2022-09-05] MEDS: Ferrous Sulfate 325 MG Tab PO SCH (08:56)
[2022-09-05] MEDS: methylPREDNISolone Sodium Succinate 125 MG/2 ML SDV IVPUSH SCH (08:57)
[2022-09-05] MEDS ORDERED: Cefuroxime 250 MG Tab PO SCH (09:00)
[2022-09-05] MEDS ORDERED: Multivitamin Tab PO SCH (09:00)
[2022-09-05 11:35] VITALS: BP 164/82; PULSE 74
[2022-09-05] MEDS ORDERED: cefTRIAXone 1 GM Vial IVPUSH SCH (18:00)
== END 2022-09-05 13:50 | disposition short-term general hospital (02) | DRG 871 ==
LOC: VM.ED 17:47 → VM.MS 20:37
PROVIDERS: ADMIT Nurse Practitioner Family; ATTEND Nurse Practitioner Family
DX: A41.2 Sepsis due to unspecified staphylococcus (principal); J18.9 Pneumonia, unspecified organism; J44.1 Chronic obstructive pulmonary disease with (acute) exacerbation; J44.0 Chronic obstructive pulmonary disease with (acute) lower respiratory infection; N18.4 Chronic kidney disease, stage 4 (severe); I13.0 Hypertensive heart and chronic kidney disease with heart failure and stage 1 through stage 4 chronic kidney disease, or unspecified chronic kidney disease; I48.91 Unspecified atrial fibrillation; N18.9 Chronic kidney disease, unspecified; I50.9 Heart failure, unspecified; I48.0 Paroxysmal atrial fibrillation; I25.10 Atherosclerotic heart disease of native coronary artery without angina pectoris; E78.00 Pure hypercholesterolemia, unspecified; I73.9 Peripheral vascular disease, unspecified; K59.09 Other constipation; N40.0 Benign prostatic hyperplasia without lower urinary tract symptoms; Z79.01 Long term (current) use of anticoagulants; G89.29 Other chronic pain; Z99.81 Dependence on supplemental oxygen; Z79.51 Long term (current) use of inhaled steroids; E87.6 Hypokalemia; E83.42 Hypomagnesemia; M54.9 Dorsalgia, unspecified; M19.90 Unspecified osteoarthritis, unspecified site; F41.9 Anxiety disorder, unspecified; F32.A Depression, unspecified; D50.9 Iron deficiency anemia, unspecified; Z98.49 Cataract extraction status, unspecified eye; N32.0 Bladder-neck obstruction; J30.2 Other seasonal allergic rhinitis; F41.8 Other specified anxiety disorders; I12.9 Hypertensive chronic kidney disease with stage 1 through stage 4 chronic kidney disease, or unspecified chronic kidney disease; K21.9 Gastro-esophageal reflux disease without esophagitis; Z88.6 Allergy status to analgesic agent; Z88.0 Allergy status to penicillin; Z88.8 Allergy status to other drugs, medicaments and biological substances; Z79.82 Long term (current) use of aspirin; Z79.899 Other long term (current) drug therapy; Z79.52 Long term (current) use of systemic steroids; Z90.89 Acquired absence of other organs; Z98.890 Other specified postprocedural states
CPT/HCPCS: 36415; 71045; 80048; 80053; 81001; 83605; 83735; 83880; 84145; 84484; 85025; 85027; 86140; 87040; 87077; 87147; 87186; 93005; 93010; 94640; 94760; 96374; 96375; 97161-GP; 97165-GO; 97535-GO; 99285; 99285-25; A9270-GY; J0696; J1940; J2930; J7030; J7512; J7613-GY; J7620-GY

== ENCOUNTER 2022-09-21 07:54 | Emergency (ER) | payer MEDICARE, OTHER, MEDICAID ==
[2022-09-21] MEDS: Albuterol/Ipratropium 3.0-0.5 MG/3 ML Neb Soln NEB ONE (08:02)
[2022-09-21] MEDS: Furosemide 40 MG/4 ML VIAL IV ONE (08:16)
[2022-09-21 08:57] LABS: ANION GAP 5.7 mmol/L (5-15); CHLORIDE,CL 101 mmol/L (98-107); ESTIMATED GFR 32 mL/min (>=60); SODIUM,NA 139 mmol/L (136-145)
[2022-09-21 09:10] VITALS: BP 139/73; PULSE 79
== END 2022-09-21 09:38 | disposition home or self-care (01) ==
LOC: VM.ED 07:54
DX: J44.1 Chronic obstructive pulmonary disease with (acute) exacerbation (principal); I13.0 Hypertensive heart and chronic kidney disease with heart failure and stage 1 through stage 4 chronic kidney disease, or unspecified chronic kidney disease; N18.4 Chronic kidney disease, stage 4 (severe); I50.9 Heart failure, unspecified; I48.91 Unspecified atrial fibrillation; I25.10 Atherosclerotic heart disease of native coronary artery without angina pectoris; N40.0 Benign prostatic hyperplasia without lower urinary tract symptoms; M19.90 Unspecified osteoarthritis, unspecified site; D50.9 Iron deficiency anemia, unspecified; Z87.891 Personal history of nicotine dependence; Z79.82 Long term (current) use of aspirin; Z79.899 Other long term (current) drug therapy; Z79.01 Long term (current) use of anticoagulants; Z88.6 Allergy status to analgesic agent; Z88.0 Allergy status to penicillin; Z88.8 Allergy status to other drugs, medicaments and biological substances
CPT/HCPCS: 36415; 71045; 80053; 83605; 83880; 84145; 85025; 86140; 87040; 94640; 96374; 99285; J1940; J7620-GY

== ENCOUNTER 2022-09-22 16:04 | Emergency (ER) | payer MEDICARE, OTHER, MEDICAID ==
[2022-09-22 17:07] LABS: CHLORIDE,CL 100 mmol/L (98-107); SODIUM,NA 139 mmol/L (136-145)
[2022-09-22 17:09] LABS: ANION GAP 7.6 mmol/L (5-15); ESTIMATED GFR 27 mL/min (>=60)
[2022-09-22] MEDS: Albuterol 0.083% 2.5 MG/3 ML Neb Soln NEB ONE (21:00)
[2022-09-22] MEDS ORDERED: Heparin Sodium 100 Units/ML 3 ML Syringe ONE (21:26)
[2022-09-22] MEDS: Heparin Sodium 100 Units/ML 3 ML Syringe IVPUSH PRN (21:30)
[2022-09-22] MEDS ORDERED: Albuterol/Ipratropium 3.0-0.5 MG/3 ML Neb Soln NEB ONE (21:40)
[2022-09-22 22:46] VITALS: BP 180/66
[2022-09-22 23:02] VITALS: PULSE 80
== END 2022-09-22 21:58 | disposition home or self-care (01) ==
LOC: VM.ED 16:04
DX: D64.9 Anemia, unspecified (principal); I48.91 Unspecified atrial fibrillation; I25.10 Atherosclerotic heart disease of native coronary artery without angina pectoris; E78.00 Pure hypercholesterolemia, unspecified; J44.9 Chronic obstructive pulmonary disease, unspecified; I12.9 Hypertensive chronic kidney disease with stage 1 through stage 4 chronic kidney disease, or unspecified chronic kidney disease; N18.9 Chronic kidney disease, unspecified; M19.90 Unspecified osteoarthritis, unspecified site; Z88.8 Allergy status to other drugs, medicaments and biological substances; Z88.0 Allergy status to penicillin; Z79.82 Long term (current) use of aspirin; Z79.899 Other long term (current) drug therapy
CPT/HCPCS: 36430; 80053; 85025; 85384; 85610; 85730; 86850; 86900; 86901; 86920; 86922; 94640; 99284; J1642; P9016; J7613-GY

== ENCOUNTER 2022-09-23 10:30 | Emergency (ER) | payer MEDICARE, OTHER, MEDICAID ==
[2022-09-23] MEDS ORDERED: Sodium Chloride 0.9% 10 ML Syringe FLUSH PRN (10:50)
[2022-09-23] MEDS: Albuterol/Ipratropium 3.0-0.5 MG/3 ML Neb Soln NEB ONE (11:03)
[2022-09-23] MEDS: Dexamethasone 4 MG/ML SDV IVPUSH ONE (11:10)
[2022-09-23 11:30] LABS: CHLORIDE,CL 100 mmol/L (98-107); SODIUM,NA 139 mmol/L (136-145)
[2022-09-23 11:40] LABS: ANION GAP 6.7 mmol/L (5-15); ESTIMATED GFR 30 mL/min (>=60)
[2022-09-23] MEDS: Furosemide 40 MG/4 ML VIAL IV ONE (12:05)
[2022-09-23] MEDS: cefTRIAXone 1 GM Vial IVPUSH ONE (13:05)
[2022-09-23 13:54] VITALS: BP 128/85; PULSE 82
== END 2022-09-23 14:10 ==
LOC: VM.ED 10:30
DX: J44.1 Chronic obstructive pulmonary disease with (acute) exacerbation (principal); J18.9 Pneumonia, unspecified organism; N39.0 Urinary tract infection, site not specified; R31.9 Hematuria, unspecified; J96.21 Acute and chronic respiratory failure with hypoxia; I48.91 Unspecified atrial fibrillation; I25.10 Atherosclerotic heart disease of native coronary artery without angina pectoris; E78.00 Pure hypercholesterolemia, unspecified; I12.9 Hypertensive chronic kidney disease with stage 1 through stage 4 chronic kidney disease, or unspecified chronic kidney disease; N18.4 Chronic kidney disease, stage 4 (severe); D63.1 Anemia in chronic kidney disease; J44.9 Chronic obstructive pulmonary disease, unspecified; N40.0 Benign prostatic hyperplasia without lower urinary tract symptoms; R78.81 Bacteremia; Z88.0 Allergy status to penicillin; Z88.8 Allergy status to other drugs, medicaments and biological substances; Z79.82 Long term (current) use of aspirin; Z79.899 Other long term (current) drug therapy
CPT/HCPCS: 36415; 71045; 80053; 81001; 82274; 83605; 83880; 84145; 84484; 85025; 85610; 87040; 87086; 96374; 96375; 99285; J0696; J1100; J1940; J7620-GY